=== PATIENT | female | born 1945 | race Caucasian/White ===

== ENCOUNTER → 2024-02-01 | Outpatient (CLI) | payer MEDICARE, SELFPAY ==
--- NOTE | 2024-02-01 09:39 | CDU_ITS ---
Reason For Study: Carotid bruit Rt. Velocities/BP Lt. Velocities/BP Prox CCA 64.5/6 cm/sec. Prox CCA 87.6/9 cm/sec. Mid CCA 62.6/8.8 cm/sec. Mid CCA 82.6/4.1 cm/sec. Dist CCA 62.6/8.8 cm/sec. Dist CCA 57.8/10.2 cm/sec. Prox ICA 135.7/7.9 cm/sec. Prox ICA 56.9/7.7 cm/sec. Mid ICA 69.1/11.4 cm/sec. Mid ICA 63/15.1 cm/sec. Dist ICA 80.2/10.2 cm/sec. Dist ICA 77.7/20 cm/sec. Rt. ICA/CCA = 2.17. Lt. ICA/CCA = 0.94. Prox ECA 152.1/6 cm/sec. Prox ECA 113.3/1.6 cm/sec. Rt. Vert. 40.9/7.7 cm/sec. Lt. Vert. 52/9.1 cm/sec. Right Extracranial There is intimal thickening but no significant atherosclerotic plaque noted in the right common carotid artery. There is heterogeneous, irregular atherosclerotic plaque noted in the right internal carotid artery. There is heterogeneous, irregular atherosclerotic plaque noted in the right external carotid artery. Antegrade flow is noted in the right vertebral artery. Left Extracranial There is homogeneous, smooth atherosclerotic plaque noted in the left common carotid artery. There is heterogeneous, irregular atherosclerotic plaque noted in the left internal carotid artery. There is heterogeneous, irregular atherosclerotic plaque noted in the left external carotid artery. Antegrade flow is noted in the left vertebral artery. Procedure Carotid Duplex [id number]. This is a Carotid Duplex examination using B-mode, color flow and specral Doppler. Exam performed in department. VL/Carotid Duplex Ultrasound Interpretation Summary Irregular calcific plaque with shadowing at the proximal right internal carotid artery with 50 to 69% stenosis Less than 50% stenosis right external carotid artery Irregular plaque at the proximal left internal carotid artery with less than 50 % stenosis Less than 50% stenosis left external carotid artery Patent antegrade vertebral arteries bilaterally Ordering Physician: Danny Hardin Referring Physician: Jc Ahuja M.D. Performed By: Tg Sylvester RVT
== END | disposition home or self-care (01) ==
PROVIDERS: PCP Internal Medicine; Referring Provider Internal Medicine Cardiovascular Disease; Visit Provider Internal Medicine Cardiovascular Disease
DX: I65.23 Occlusion and stenosis of bilateral carotid arteries (principal); R09.89 Other specified symptoms and signs involving the circulatory and respiratory systems
CPT/HCPCS: 93880

== ENCOUNTER → 2024-02-17 | Outpatient (CLI) | payer MEDICARE, SELFPAY ==
--- NOTE | 2024-02-17 07:05 | ECHOD_ITS ---
Reason For Study: ASHD Procedure This was a 2D Doppler, Color Flow transthoracic echocardiogram. The study was technically difficult. Due to arrhythmia. Exam performed in department. Left Ventricle Normal left ventricle. Mild concentric left ventricular hypertrophy. Left ventricular systolic function is normal. The estimated ejection fraction is 65 %. No regional wall motion abnormalities noted. Right Ventricle Normal RV size. Normal systolic function. Atria Normal left atrium. Normal right atrium. Mitral Valve Normal mitral valve. Tricuspid Valve Normal tricuspid valve. Mild to moderate (1-2+) tricuspid valve insufficiency. Pulmonary artery systolic pressure is 50 mmHg. Moderate pulmonary hypertension. Aortic Valve The aortic valve is not well visualized. Peak aortic valve gradient 90 mmHg. Mean aortic valve gradient 55 mmHg. Severe aortic stenosis. Mild (1+) aortic valve insufficiency. Pulmonic Valve Normal pulmonic valve. Great Vessels Normal aortic root. The pulmonary artery is normal size. Inferior vena cava collapse with respiration. Pericardium/Pleural No pericardial effusion. MMode/2D Measurements & Calculations LVIDd: 4.2 cm IVSd: 1.4 cm LVOT diam: 1.8 cm LVIDs: 2.8 cm LVPWd: 1.2 cm LVOT area: 2.5 cm2 RVDd: 2.5 cm FS: 32.7 % Ao root diam: 2.6 cm LAV(MOD-bp): 47.7 ml LA A4 area: 17.9 cm2 LAV(MOD-bp) Indexed: 27.1 ml/m2 LAV(MOD-sp2): 41.8 ml LAV(MOD-sp4): 52.0 ml LA dimension(2D): 3.8 cm TAPSE: 2.2 cm RA A4 area: 11.9 cm2 Doppler Measurements & Calculations Lat Peak E' Karsten: 5.9 cm/sec Med Peak E' Karsten: 7.0 cm/sec MV V2 max: 156.1 cm/sec MV max P.7 mmHg MV V2 mean: 93.5 cm/sec MV mean P.9 mmHg MV V2 VTI: 45.5 cm MVA(VTI): 2.1 cm2 MV P1/2t max karsten: 122.4 cm/sec Ao V2 max: 473.0 cm/sec AI max karsten: 378.3 cm/sec MV P1/2t: 101.7 msec Ao max P.5 mmHg AI max P.6 mmHg MV dec slope: 352.6 cm/sec2 Ao V2 mean: 357.0 cm/sec AI dec slope: 296.6 cm/sec2 Ao mean P.8 mmHg AI P1/2t: 373.5 msec MVA(P1/2t): 2.2 cm2 Ao V2 VTI: 121.2 cm AV (velocity ratio): 0.31 KARL(I,D): 0.78 cm2 KARL(V,D): 0.72 cm2 LV V1 max: 137.2 cm/sec SV(LVOT): 94.4 ml PA V2 max: 126.3 cm/sec LV V1 max P.6 mmHg PA V2 mean: 81.6 cm/sec LV V1 mean P.0 mmHg PA V2 VTI: 25.7 cm LV V1 mean: 108.2 cm/sec LV V1 VTI: 38.1 cm TR max karsten: 336.0 cm/sec TR max P.2 mmHg ECHO/Echo Complete Interpretation Summary Normal left ventricle. Left ventricular systolic function is normal. The estimated ejection fraction is 65 %. Mild concentric left ventricular hypertrophy. Pulmonary artery systolic pressure is 50 mmHg. Moderate pulmonary hypertension. Mean aortic valve gradient 55 mmHg. Severe aortic stenosis. Ordering Physician: Danny Hardin Referring Physician: Jc Ahuja Performed By: Donita Ferris, [place], RVT
--- NOTE | 2024-02-17 11:33 | STRESSREP_ITS ---
Stress Test Report Pharmacologic myocardial perfusion stress test. 78-year-old lady with a history of coronary artery disease and dyspnea Resting EKG demonstrates sinus rhythm with a rate of 83 bpm. Right bundle branch block is noted. Resting blood pressure is 168/84 mmHg. 0.4 mg of regadenoson was infused per usual protocol followed by rapid intravenous saline flush injection. Continuous EKG monitoring was performed. The maximum heart rate was 104 bpm which was 72% of max impacted heart rate the maximum workload was 1 metabolic equivalent. At rest there were no ST or T wave changes noted to suggest ischemia and at peak infusion nonspecific ST changes were noted which did not meet the criteria for ischemia. No clinical angina is noted. The f inal blood pressure was 138/74 mmHg. Myocardial perfusion protocol. 11.6 mCi of technetium 99m sestamibi was injected at rest. 0.4 mg of regadenoson was infused per usual protocol. At peak infusion 34.1 mCi of technetium 99m sestamibi was injected stress images were obtained stress and rest images were reconstructed and compared in the short axis vertical long and horizontal long axis. Gated images were also obtained. Perfusion SPECT analysis: Review of the stress images demonstrate normal uptake of tracer noted in all areas of the myocardium. The resting images similar demonstrated normal uptake of tracer noted in all areas of the myocardium. No areas of reversibility are noted to suggest ischemia and no previous infarct is noted. Gated SPECT analysis: The gated ejection fraction is 67%. Conclusion: Normal pharmacologic myocardial perfusion stress test. Preserved ejection fraction.
== END | disposition home or self-care (01) ==
PROVIDERS: PCP Internal Medicine; Referring Provider Internal Medicine Cardiovascular Disease; Visit Provider Internal Medicine Cardiovascular Disease
DX: I25.10 Atherosclerotic heart disease of native coronary artery without angina pectoris (principal); I25.84 Coronary atherosclerosis due to calcified coronary lesion
CPT/HCPCS: 78452; 93017; 93306; A9500; A4216; J2785

== ENCOUNTER 2024-03-03 06:57 | Day surgery (SDC) | payer MEDICARE, SELFPAY ==
--- NOTE | 2024-02-19 10:50 | RAD_ITS ---
EXAM: XR CHEST, 2 VIEWS CLINICAL INDICATION: nonrheumatic aortic artery stenosis TECHNIQUE: Frontal and lateral views of the chest. COMPARISON: June 19, 2011. FINDINGS: LUNGS AND PLEURAL SPACES: Mild chronic-appearing lung changes including mild increased apparent lucency in the left upper lung field and mild chronic interstitial markings in the lung bases. No pneumothorax. No effusion. HEART: Unremarkable. Cardiac silhouette not enlarged. MEDIASTINUM: Central airways and mediastinal contour are unremarkable. BONES/JOINTS: Unremarkable. No acute fracture. SOFT TISSUES: Unremarkable. VASCULATURE: Mild peripheral calcification of the aortic arch is stable. RAD/Chest PA and Lateral IMPRESSION: Stable chest. Mild chronic changes. Electronically Signed: Ledy Ornelas MD at 2:45 EDT ,
[2024-02-19 11:47] LABS: Absolute Neutrophil Count 4.5 X10^3/uL (2.0-7.7); Basophil# 0.08 X10^3/uL; Eosinophil# 0.22 X10^3/uL; Eosinophils% 2.7 % (0-5); Hematocrit 45.4 % (37-47); Hemoglobin 15.3 g/dL (12.0-15.0); Lymphocyte % 28.6 % (19-41); Mean Corp Hgb Conc 33.7 g/dL (32-36); Mean Corpuscular Hgb 29.4 pg (27.0-32.0); Mean Corpuscular Volume 87.1 fL (81-99); Mean Platelet Vol. 9.2 fl (6.2-12.0); Monocyte# 0.89 X10^3/uL; Monocyte% 11.1 % (0-10); NRBC Flagged by Analyzer 0 % (0-5); Neutrophil # 4.53 X10^3/uL (2.7-7.7); Neutrophil % 56.5 % (47-70); Platelet Count 329 K/mm3 (150-450); RBC Distribution Width CV 13.6 % (11.6-14.6); RBC Distribution Width SD 43.4 fl (35.1-43.9); Red Blood Count 5.21 M/mm3 (4.2-5.4)
[2024-02-19 11:56] LABS: International Normalized Ratio 0.9; Prothrombin Time (Protime)PT. 12.2 SECONDS (11.7-14.9)
[2024-02-19 11:57] LABS: Partial Thromboplast Time 26.7 Seconds (24.1-36.2)
[2024-02-19 12:10] LABS: Anion Gap 3 (5-15); BUN 32 mg/dL (7-18); BUN/Creat Ratio 18.1 RATIO (10-20); Calcium,Total 9.3 mg/dL (8.5-10.1); Chloride 110 mmol/L (98-107); Creatinine, Serum 1.77 mg/dL (0.55-1.02); EST Glomerular Filtration Rate 30 mL/min (>60); Est Glom Filt Rate - Afr Amer 36 mL/min (>60); Glucose 71 mg/dL (74-106); Potassium 4.2 mmol/L (3.5-5.1); Sodium Level 140 mmol/L (136-145)
--- NOTE | 2024-02-22 12:52 | PCM.HP.BLA ---
History and Physical Date of Admission: 03/03/24 This is a 78-year-old lady who presents to for a cardiac catheterization for severe aortic valve stenosis. She has a history of hypertension aortic valvular disease who presents for evaluation of her cardiac status. She has been short of breath with exertion as well as has had some upper back pain. She denies any dizziness or diaphoresis near syncope or syncope she has been compliant with her medications. Do remember that she is a smoker in the past and as part of her workup she underwent a low-dose CT scan which demonstrated evidence of coronary artery calcification. She denies any chest pain or diaphoresis. She has not had any pedal edema. Her physical exam is significant for clear lung rosenbaum bilateral carotid bruit soft 2/6 systolic murmur noted left sternal border. Intake Vital Signs See EMR Allergies See EMR Medications See EMR Ejection fraction %: 65 to 70 PFSH Medical History Asthma Benign hypertension Bilateral carotid artery stenosis Cervicalgia CKD (chronic kidney disease) stage 3, GFR 30-59 ml/min COPD (chronic obstructive pulmonary disease) Coronary artery calcification H/O cardiovascular stress test HLD (hyperlipidemia) Nonrheumatic aortic (valve) stenosis Osteoporosis Polycythemia secondary to smoking PVD (peripheral vascular disease) RBBB Social History Smoking Status: Former smoker ROS Const Const: Positive for fatigue and weakness; Negative for headache(s), daytime sleepiness or difficulty sleeping Eyes Eyes: Negative for change in vision ENT ENT: Negative for headache(s), dizziness or Nosebleed/epistaxis Cardio Chest Pain: No Palpitations: No Edema: None Resp Respiratory: Positive for SOB with activity and SOB at rest; Negative for SOB orthopnea\SOB lying down or Cough GI GI: Negative nausea, vomiting or heartburn Neuro Neuro: Positive for weakness; Negative for dizziness, lightheadedness, near syncope or headache(s) Endo Endo: Positive for fatigue Cardiology Exam Const Appearance: cooperative, healthy appearing, no acute distress, well developed and well groomed Nutritional Appearance: average body habitus and well nourished Orientation: alert, awake and oriented x3 Head Head: normal to inspection, normocephalic and atraumatic Ears: hearing grossly normal bilaterally and external ears normal Nose: external nose normal, nares normal, nasal mucous membranes and turbinates normal, septum normal and no nasal discharge Face and Sinus: face symmetric Mouth: oral mucosae normal, tongue normal, oropharynx normal and moist mucous membranes Teeth and gingiva: dentition normal Throat: posterior oropharynx normal, tonsils normal and uvula midline Eyes General: appearance normal, both eyes and all related structures Eyelids: eyelids normal Conjunctivae: conjunctivae normal Pupils: PERRL, normal by confrontation and accommodation normal EOM: EOM intact bilaterally Neck Neck: normal visual inspection, trachea midline and no JVD JVD: +5 Carotids: normal carotid upstroke and bounding pulses Chest Chest inspection: normal inspection of the chest, symmetric chest movement and normal respiratory effort Auscultation: Bilateral: Clear to Auscultation Cardio Palpation: normal PMI Rate: regular rate Rhythm: regular rhythm Heart sounds: S1 normal, S2 normal and normal, physiologic split S2; Negative rub, gallop or murmur Murmur: Grade 2/6 GI GI: normal to inspection, soft, no hepatosplenomegaly and bowel sounds present Neuro General: patient alert, patient awake, patient oriented x3, gait normal, moves all extremities and no focal sensory deficit Skin Skin: no rashes or lesions noted Extremities Pulses: Normal: Right Femoral Pulse, Left Femoral Pulse, Right Dorsalis Pedis Pulse, Left Dorsalis Pedis Pulse, Right Posterior Tibial Pulse, Left Posterior Tibial Pulse, Right Radial Pulse and Left Radial Pulse Lower Extremity Edema: None: Bilateral Musculoskel Musculoskeletal: No joint tenderness Psych Psychological: normal affect Supplemental Info Supplemental Information Echocardiogram 02/17/2024: Interpretation Summary Normal left ventricle. Left ventricular systolic function is normal. The estimated ejection fraction is 65 %. Mild concentric left ventricular hypertrophy. Pulmonary artery systolic pressure is 50 mmHg. Moderate pulmonary hypertension. Mean aortic valve gradient 55 mmHg. Severe aortic stenosis. Stress test 02/17/2024: Conclusion: Normal pharmacologic myocardial perfusion stress test. Preserved ejection fraction. Echocardiogram 03/26/16 ([facility]) Conclusion The left ventricle is normal in size. There is mild upper septal left ventricular hypertrophy. Left ventricular systolic function is normal. EF=65+ 5 %. Baseline left ventricular diastolic function is consistent with abnormal relaxation (Stage I). The right ventricle is normal in size. Right ventricular systolic function is normal. Mild aortic stenosis, with no AI, Peak/mean gradient 33/20mmHg KARL 1.4cm2 DI.45 Stress Test 10/09/09 ([facility]) Impression No evidence if ischemia or infarction. Normal global and regional left ventricular function. Carotid US 05/09/19 ([facility]) Impression Right Side: Internal carotid artery: 40-59%. Vertebral artery: Patent and antegrade flow noted. Subclavian artery: 50-99% stenosis. Left Side: Internal carotid artery: 20-39%. Vertebral artery: Patent and antegrade flow noted. Subclavian artery: 50-99% stenosis. Assessment and Plan Assessment and Plan (1) Nonrheumatic aortic (valve) stenosis: Status: Acute Plan: Patient has a history of aortic valve stenosis. Her echocardiogram from January of this year, demonstrated an ejection fraction of 65% , and severe aortic stenosis. Would like to proceed with a cardiac catheterization to further assess this. Depending on results, further recommendations will be made.
[2024-03-02 10:51] VITALS: BMI 22.8
--- NOTE | 2024-03-03 08:56 | CL.D_ITS ---
Patient Name: LEANNA HUBBARD Study Date: 03/03/2024 Performing: Danny Hardin MD Ht: 62 inches 157.48 cm : 1945 Wt: 189.6 lbs 86 kg Age: 78 Gender: female BSA: 1.87 PROCEDURE(S) PERFORMED DC01-(71175)LHC/COR/LV CLINICAL PROFILE AND INDICATIONS Indications: Valvular Disease Heart Failure: None Stress/Imaging Stress/Image Study Performed: No CAD Presentations: Symptom unlikely to be ischemic. CONCLUSIONS Non obstructive coronary arteries Aortic Valve Stenosis- Severe RECOMMENDATIONS Referred for TAVR. DESCRIPTION OF PROCEDURE The patient arrived to the procedure lab. The risks and benefits of the procedure as well as a full description of our services here and current unavailability of surgical backup were fully explained to the patient and/or their significant other prior to the catheterization. The Timeout was completed, verifying the correct patient and procedure. The patient's procedural site was prepped and draped in the usual fashion. Local anesthetic was given subcutaneously to right radial region with Lidocaine 2%. Using a modified Seldinger technique, arterial access was obtained via the right radial artery, a 6Fr sheath was inserted. Left Coronary Artery selective angiography was performed in multiple views using a 5 Fr. 4.0 Wardell catheter. Right Coronary Artery selective angiography was then performed in multiple views using a 5 Fr. JR 5 catheter.The arterial sheath was pulled and a TR Band was applied for hemostasis 9 ml of air CORONARY ANGIOGRAPHY DOMINANCE: Right Dominant LEFT HEART ASSESSMENT Left Ventricular Ejection Fraction: by Echo 60 % Normal LV wall motion Normal Left Ventricular systolic function LEFT MAIN: Mild calcification, No significant disease noted LEFT ANTERIOR DESCENDING ARTERY: Mild luminal irregularities less than 30% CIRCUMFLEX ARTERY: Mild luminal irregularities less than 30% RIGHT CORONARY ARTERY: Mild luminal irregularities VALVE FINDINGS: Aortic Valve Calcification - severe Aortic Valve Stenosis - severe COMPLICATIONS No Complications PROCEDURE MEDICATIONS Fentanyl 50 mcg IV Versed 1 mg IV Baby Aspirin (81mg) 1 Tabs PO @ 03/03/2024 07:41:29 Heparin given IA 03/03/2024 08:25:59 IV Fluids: .9 NaCl IV started @ 50 ml/hr 03/03/2024 08:32:07 SUMMARY OF HEMODYNAMIC DATA Time AIR REST ECG 07:34:12 ECG 08:15:57 AO 139/53 (87) SA 08:32:39 Signed By Danny Hardin MD On 03/03/2024 08:55:41 Danny Hardin MD
== END 2024-03-03 10:20 | disposition home or self-care (01) ==
PROVIDERS: PCP Internal Medicine; Referring Provider Internal Medicine Cardiovascular Disease; Visit Provider Internal Medicine Cardiovascular Disease
DX: I35.0 Nonrheumatic aortic (valve) stenosis (principal); J44.9 Chronic obstructive pulmonary disease, unspecified; N18.30 Chronic kidney disease, stage 3 unspecified; I12.9 Hypertensive chronic kidney disease with stage 1 through stage 4 chronic kidney disease, or unspecified chronic kidney disease; E78.5 Hyperlipidemia, unspecified; I25.10 Atherosclerotic heart disease of native coronary artery without angina pectoris; I70.8 Atherosclerosis of other arteries; Z87.891 Personal history of nicotine dependence; I25.84 Coronary atherosclerosis due to calcified coronary lesion; Z79.82 Long term (current) use of aspirin; I65.23 Occlusion and stenosis of bilateral carotid arteries; I45.10 Unspecified right bundle-branch block; I73.9 Peripheral vascular disease, unspecified
CPT/HCPCS: 36415; 71046; 80048; 85025; 85610; 85730; 93454; 99152; 99153; J7040; Q9967; C1769; C1894

== ENCOUNTER → 2024-08-18 | Outpatient (CLI) | payer MEDICARE, SELFPAY ==
[2024-08-18 12:32] LABS: Absolute Lymphocyte Count 2.81 X10^3/uL (0.83-4.51); Absolute Neutrophil Count 4.8 X10^3/uL (2.0-7.7); Basophil# 0.09 X10^3/uL; Eosinophil# 0.25 X10^3/uL; Eosinophils% 2.9 % (0-5); Hematocrit 44.5 % (37-47); Hemoglobin 14.9 g/dL (12.0-15.0); Lymphocyte # 2.81 X10^3/ul (0.83-4.51); Lymphocyte % 32.2 % (19-41); Mean Corp Hgb Conc 33.5 g/dL (32-36); Mean Corpuscular Hgb 28.8 pg (27.0-32.0); Mean Corpuscular Volume 85.9 fL (81-99); Monocyte# 0.81 X10^3/uL; Monocyte% 9.3 % (0-10); NRBC Flagged by Analyzer 0 % (0-5); Neutrophil # 4.76 X10^3/uL (2.7-7.7); Neutrophil % 54.4 % (47-70); Platelet Count 233 K/mm3 (150-450); RBC Distribution Width CV 13.6 % (11.6-14.6); RBC Distribution Width SD 42.3 fl (35.1-43.9); Red Blood Count 5.18 M/mm3 (4.2-5.4); White Blood Count 8.7 K/mm3 (4.4-11.0)
[2024-08-18 12:51] LABS: Anion Gap 5 (5-15); BUN 48 mg/dL (7-18); BUN/Creat Ratio 25.8 RATIO (10-20); Calcium,Total 9.6 mg/dL (8.5-10.1); Chloride 111 mmol/L (98-107); Creatinine, Serum 1.86 mg/dL (0.55-1.02); EST Glomerular Filtration Rate 28 mL/min (>60); Est Glom Filt Rate - Afr Amer 34 mL/min (>60); Glucose 100 mg/dL (74-106); Potassium 4.2 mmol/L (3.5-5.1); Sodium Level 141 mmol/L (136-145)
[2024-08-18 13:02] LABS: BNP,B-Type NATRIURETIC PEPTIDE 60.2 pg/mL (0-100)
== END | disposition home or self-care (01) ==
LOC: LAB 10:45
PROVIDERS: PCP Internal Medicine; Referring Provider Nurse Practitioner Family; Visit Provider Nurse Practitioner Family
DX: R06.09 Other forms of dyspnea (principal)
CPT/HCPCS: 36415; 80048; 83880; 85025

== ENCOUNTER → 2024-08-23 | Outpatient (CLI) | payer MEDICARE, SELFPAY ==
--- NOTE | 2024-08-23 09:58 | PCM.CR.HP2 ---
CR - History & Physical General Arrival date:: 08/23/24 Arrival time:: 09:58 Date of Referral:: 08/10/24 Date of CR Evaluation:: 08/23/24 Referring Physician: Dr. Hardin Primary Diagnosis: heart valve replacement History of Present Cardiac Event Onset Date Heart valve replacement or repair:: Yes (onset 05/02/24) Medications Ambulatory Orders ?Medication ?Instructions ?Recorded cilostazol 50 mg tablet 50 mg PO DAILY 12/03/23 fluticasone 100 mcg-salmeterol 50 1 inh inhalation BID 12/03/23 mcg/dose blistr powdr for inhalation (Advair Diskus) hydrochlorothiazide 25 mg tablet 25 mg PO DAILY 12/03/23 melatonin 3 mg capsule 3 mg PO HS sleep 12/03/23 pravastatin 20 mg tablet 20 mg PO DAILY 12/03/23 losartan 50 mg tablet 50 mg PO DAILY dose increased by 07/06/24 Lu Hameed [employer] at [facility] #90 tabs metoprolol tartrate 50 mg tablet 50 mg PO BID #180 tabs 07/06/24 meloxicam 7.5 mg tablet 7.5 mg PO QDAY PRN 08/10/24 amlodipine 5 mg tablet 5 mg PO DAILY #90 tabs 08/11/24 warfarin 2 mg tablet 2 mg PO QDAY #30 tabs 08/15/24 Allergies Allergies codeine Adverse Reaction (Intermediate, Verified 08/10/24 11:21) PT UNSURE OF REACTION meperidine (From Demerol) Adverse Reaction (Intermediate, Verified 08/10/24 11:21) Abd cramps/diarrhea Penicillins Adverse Reaction (Intermediate, Verified 08/10/24 11:21) Rash Sulfa (Sulfonamide Antibiotics) Adverse Reaction (Intermediate, Verified 08/10/24 11:21) PT UNSURE OF REACTION Sleep Disorder Evaluation Hx of Sleep Apnea: No Do you snore loudly (louder than talking or can be heard through closed doors)?: No Do you often feel tired/ fatigued/ sleepy during daytime?: No Has anyone observed you stop breathing during sleep?: No History of Hypertension (for STOP score): Yes STOP Results: Negative Advanced Directives Advanced Directives Power of Cotton Classer Aide: Yes Living Will: Yes Advance Directives Information Provided: Yes Advance Directives on File: Yes DNR Order?:: No Past Medical History Covid-19 Screening Physicial Symptoms Other Clinical Concerns Exposure Risk Pertinent Comorbidities 65 years or older:: Yes Has a chronic lung disease or moderate to severe asthma:: Yes Has a serious heart condition:: Yes Past Medical Illness Medical History Complete heart block, 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 Cervicalgia Polycythemia secondary to smoking Bilateral carotid artery stenosis CKD (chronic kidney disease) stage 3, GFR 30-59 ml/min Osteoporosis RBBB PVD (peripheral vascular disease) Nonrheumatic aortic (valve) stenosis Coronary artery calcification H/O cardiovascular stress test HLD (hyperlipidemia) COPD (chronic obstructive pulmonary disease) Benign hypertension Asthma Past Surgical History Surgical History S/P TAVR (transcatheter aortic valve replacement) (05/02/24) Surgical History: appendectomy and hysterectomy Social History Smoking History Smoking Status: Current every day smoker Years Smokin Packs Smoked per Day: 0.5 Alcohol Use Alcohol Usage: No Substance Abuse Hx Substance Use: No Occupation Occupation (List type of work in comments):: Retired Hobbies, Recreation, Social Activities Hobbies: Farm Recreational Activities: I am able to engage in most, but not all activities Social Environment Status Marital Status: Current Living Arrangements Living Environment:: Spouse Safety Do you feel safe in your surroundings?: Yes Assistance Do you need any assistance at home?: no Review of Systems Review of Systems Hints Review of Present Symptoms: Reports Shortness of Breath at Rest, Shortness of Breath with Exertion, Fatigue, Heart Arrhythmia/Irregularities, Appetite - Normal, Appetite - Special Diet and Sleep - Normal; Denies PVD, Operative Discomfort, Angina, Wound Healing, Dizziness/Lightheadedness or Sexual Changes Pain Is Patient Pain Free?: Yes Risk Factor Assessment Chief Complaint Chief Complaint: heart valve replacement Vital Signs Blood Pressure: 151/80 Pulse Pulse Rate: 82 Hypertension Blood Pressure Sitting - Right Arm: 151/80 Obesity Height: 5 ft 2 in Weight:: 162 lb Weight in Pounds: 162.0 lbs Body Mass Index (BMI): 29.6 Nutritional Referral for Obesity: No (declines) Physical Inactivity Physical Inactivity: None Risk Stratification Risk Guidelines: Moderate Risk: Risk Factor for Diabetes, Risk Factor for Obesity, Risk Factor for Sedentary Lifestyle and Risk Factor for Depression and Highest Risk: Risk Factor for Smoking, Risk Factor for Dyslipidemia and Risk Factor for Hypertension For Smoking Smoking Risk Guidelines For Dyslipidemia Dyslipidemia Risk Guidelines For Diabetes Mellitus Diabetes Risk Guidelines For Obesity/Overweight Obesity/Overweight Risk Guidelines For Hypertension Hypertension Risk Guidelines For Sedentary Lifestyle Sedentary Lifestyle Risk Guidelines For Depression Depression Risk Guidelines Motivation Motivation to Participate On a scale of 1 to 10, how prepared are you to commit to attending program?: 5 What do you see as barriers to successfully being able to complete the program?: nothing What do you see as the benefits of succesfully completing the program? In other words, what do you hope to get out of participating in the program?: energy Are there issues you are dealing with that will interfere with completing the program?: no Do you have a spouse or signficant other, family or friends who will help support you to complete the program?: yes
--- NOTE | 2024-08-23 10:03 | PCM.CR.ITP ---
Diagnosis General Information Admitting Diagnosis: heart valve replacement Personal Learning Style:: Audio/Visual Barriers to Learning: No Barriers Stage of change r/t lifestyle modifications:: Contemplation Gave educational material for:: Treating Heart Disease, How The Heart Works, What it means to have Heart Disease, How Coronary Artery Disease is Diagnosed, Heart Procedures, What Heart Medications Do, Risk Factors & Modifications, Living an Active Life, Nutrition, Emotions & Heart Disease, Stress Management & Relaxation and Sleep Disorders & Heart Disease Education/Goals Cardiac Rehabilitation Goals Personal Goals: Initial Assessment: Quit smoking (participate in smoking cessation, Improve energy level and Improve muscle strength and endurance Scale for measuring improvement of personal goals Diagnosis & Disease Process Outcomes/Goals: Pt IDs own risk factors & lifestyle modifications by Session 10, Verbalizes symptoms of angina & response by session 3., Pt independently manages and Other Additional Outcomes/Goals: Plan/Interventions: Assist Pt to ID & engage in lifestyle modification to reduce CVD risk, Instruct on individual risk factors, Review symptoms of angina & emergency actions, Review secondary diagnosis & identify educational needs. and Other see comment 30 day Reassessments:: Not Met 30 day Reassessments:: Not Met 30 day Reassessments:: Not Met 30 day Reassessments:: Not Met Final Reassessments:: Not Met Safety Referral to Physical Therapy: No Referral to [facility] Case Management: No Fall Risk Assessed:: Yes Assistive Devices:: None Exercise - Initial Assessment Visit Date of Eval: 08/23/24 (initial eval ) Mets: Pre-: >3 METS for 30 minutes by discharge, >5 METS for 30 minutes by discharge, >7 METS for 30 minutes by discharge and Unable to meet goal due to: (see comment below) Physician Prescribed Exercise Modalities: Treadmill, Schwinn Airdyne AD-7, SciFit Stepper, [email or web address] Pro-II Ergometer and G4S Lateral Manager [employer] Frequency: 3x/week for 12 weeks [36 sessions] Intensity: 60-80% of age predicted maximum heart rate reserve Duration: 30 - 45 minutes Current METSs:: 3 Target Heart Rate:: 85-107 Resting Blood Pressure: 151/80 EKG Type: SR 1st degree A-V block occas ectopic vent beats Outcomes & Goals Goals:: Verbalizes understanding of THR, RPE & goal METS by session 6, Documents in home exercise log/reports 30 min aerobic 5 day/wk by DC, Demonstrates accurate pulse taking by DC and Other additional outcome/goals: see below Intervention & Plan Exercise Program Goals: Instruct on personal THR & RPE, Instruct on MET level & personal MET goal, Show patient to take own pulse /validate performance until accurate, Instruct on home exercise and Other additional plan/int Physical Activity Home Exercise Physical Activity - Home Exercise: Safe Exercise, Warm-up, Self-monitoring, Cool-Down, Home Exercise > 30 min Daily and Sitting Time <3 hours/daily Outcomes & Goals Outcomes/Goals: Demonstrates correct Warm-up/exercise Cool-Down (S3) if = 2.5 METs, Verbalizes symptoms of exercise intolerance by Session 3 (S3), Demonstrate safe equipment use (S3) & follows exercise prescrition (6) and Other: See below Intervention & Plan Plan/Intervention: Instruct warm-up & cool-down if exercising at > 2 METs, Instruct on symptoms of exercise intolerance & actions to take, Instruct & monitor on saf, Assess intial functional capacity & safety risk and Other See below Nutrition - Initial Assessment Program Goals Nutrition Program Goals Patient has diagnosis of Hyperlipidemia (ICD E78)?: Yes Visit Date of Eval: 08/23/24 (initial eval ) Cholesterol/Lipids (Other Core Measures) Determine presence & major risk factors that modify LDL goal: Cigarette smoking, Hypertension or hypertensive medication, Low HDL cholesterol <40 mg/dL*, Family history of premature CHD in Male < 55 years: female <65 yearsFa and Age men > 45 years; women >/= 55 years Outcomes/Goals: Pt IDs own risk factors & lifestyle modifications by Session 10, Verbalizes symptoms of angina & response by session 3., Pt independently manages and Other Additional Outcomes/Goals: Intervention/Plan: Advocate for lipid panel cholesterol medication if applicable, Instruct on personal lipid levels & lipid goals/NCEP guidelines, Instruct on cholesterol and Other additional plan/int Diabetes (Other Core Measures) Diabetes Type: Not Applicable Weight Mgt (Other Care) Height: 5 ft 2 in Weight:: 162 lb BMI: 29.6 Diagnosis Overweight/Obesity BMI> 30% ICD-10 E66: No Diagnosis High BMI/Morbid Obesity BMI> 35% ICD-10 Z68: No Outcomes/Goals: Pt sets, maintains & shows weight loss goal & trend during rehab and Other additional outcomes/goals Intervention/Plan: Instruct on ideal BMI & set weight loss goal w/patient, Assist pt to ID & incorporate diet changes for weight loss by S9, Refer to Structured Weight Loss program as appropriate, Encourage goal of using 250-300dcal per session for weight loss and Other additional plan/interventions Healthy Eating Habits Will attend diet classes:: Yes Outcomes/Goals:: Consume diet rich in vegs,fruits,whole grain/high fiber,fish,lean meat, Limit sat/trans fats,cholesterol & added salts & sugars and Other additional outcome/goals: Intervention/Plan:: Assess current eating habits and Other Additional plan/interventions Education Gave educational materials for:: Signs & symptoms of hypoglycemia, Signs & symptoms of hyperglycemia, Relate diabetes to coronary artery disease and Healthy eating Core - Initial Assessment Visit Date of Eval: 08/23/24 (initial eval ) Medication Compliance Preventative Medication(s):: Statin/lipid, Beta scott, Eliquis and ARB (Angiotensi Rcap) H/O mental health issues: depression, anxiety, or addiction?: No Doesn?t believe in the benefits of treatment?: No Believes medications are unnecessary or harmful?: No Has a concern about medication side effects?: No Expresses concern over the cost of medications?: No Outcomes/Goals: Verbalizes medications,desired effect & common side effects @ DC, Pt self-reports following medication regimen, Keeps card in wallet w/medications listed by DC and Other additional outcome/goals: Interventions/plans: Instruct on medication effects & side effects, Review medication list w/patient every two weeks, Instruct importance of taking meds as ordered & assist problem solving and Other additional Tobacco Use Tobacco Use: Cigarettes How many cigarettes do you smoke per day?: 10 Years Smokin Outcomes/Goals: Smoking cessation achieved or maintained by discharge, Identify aids/strategies for achieving smoking cessation by session 6 and Other additional outcome/goals Interventions/plan: Instruct on effects of smoking & provide smoking cessation resource, Assist pt to set quit date & provide encouragement, Assist pt to develop strategies to achieve/maintain quit date, Assist pt w/nicotine replacement & medication for cessation success and Other additional plan/interventions Hypertension Hypertension Diagnosis:: Hypertension ICD-10 I10 Resting Blood Pressure:: 151/80 [place] [employer] Hypertension Guidelines Outcomes/Goals: Able to verbalize/achieve optimal blood pressure <130/80, Incorporates diet changes & exercise for blood pressure control by DC and Other additional outcomes/goals Interventions/plan: Instruct on optimal blood pressure, hypertension & medications, Instruct on effects of sodium, alcohol, stress, exercise &hypertension and Other additional plan/interventions Tobacco Cessation Referral Smoking Cessation Referral:: Yes Individual Education/Counseling:: No Education Schedule Given:: Yes Psychosocial - Initial Assess VIsit Date of Eval: 08/23/24 (initial eval ) History of previous Mental disease:: No Target Goals Target Goals Psychosocial Test Tool Used:: [employer] QOL Cardiac and PHQ-9 Questionnaire phq-9 Severity Referral to Behavioral Health PS - Interventions: Yes: Attend Stress Management Classes Outcomes/Goals: See list Psychosocial Outcomes/Goals:: ID's personal stressors & 2 strategies to manage stress by discharge and Other Additional outcome/goals: Intervention/Plan: See List Interventions/Plan:: Assess stressors,coping strategies & signs of derpression on admission, Instruct/assist pt to develop coping & personal stress Mgt strategies, Refer to Behavioral Health if appropriate, Refer to Physician if appropriate, Instruct patient to recognize signs & symptoms of depression, Instruct patient to recog and Other additional plan/intervention Patient Health Questionnaire PHQ-9 Screening Initial Assessment: 1. Little interest or pleasure in doing things: Several days 2. Feeling down, depressed, or hopeless: Not at all 3. Trouble falling or staying asleep, or sleeping too much: Several days 4. Feeling tired or having little energy: Nearly every day 5. Poor appetite or overeating: Not at all 6. Feeling bad about yourself -- or that you are a failure or have let yourself or your family down: More than half the days 7. Trouble concentrating on things, such as reading the newspaper or watching television: Not at all 8. Moving or speaking so slowly that other people could have noticed. Or the opposite - being so fidgety or restless that you have been moving around a lot more than usual: Not at all 9. Thoughts that you would be better off , or of hurting yourself in some way: Not at all How difficult have these problems made it for you to do your work, take care of things at home, or get along with other people?: Very difficult Total Score: 7 TAMMI-Q SV Test Statements CAD is a disease of the arteries in the heart: False Examples of risk factors for heart disease: True Angina is chest pain or discomfort: True The benefits of resistance training include: True Eating more meat and dairy products: True Anti-platelet medications such as aspirin are important: True The only effective way to manage stress: False An exercise warm-up slowly increases heart rate: False Prepared, processed foods usually have high sodium: True Depression is common after a heart attack: I Don't Know The statin medications lower cholesterol: True To control blood pressure, lower the amount of sodium: True If someone gets chest discomfort during walking: False Transfats are partially hydrogenated vegetable oils: I Don't Know Sleep apnea that is not treated increases the risk: I Don't Know To control cholesterol, one should become a vegetarian: I Don't Know Someone knows if he/she is exercising at the right level: I Don't Know Diabetes cannot be prevented with exercise & health eating: False Stress is a large risk for heart attack: False A diet that can help lower blood pressure is rich in: True Total Score Total Correct Responses: 12 Self-Efficacy 6-Item Scale Initial Assessment: We would like to know how confident you are in doing certain activities. Please select your confidence level for: Fatigue Select Number: 8 Physical Discomfort or Pain Select Number: 8 Emotional Distress Select Number: 5 Other Symptoms or Health Problems Select Number: 8 Different Tasks and Activities Select Number: 8 Medication Select Number: 8 Total Score:: 7 Nutrition Survey Nutrition Survey Instructions Scoring Instructions Nutrition Survey Initial: Have you lost >10 lbs over the past 2 months without trying?: No Are you following a special diet at home for diabetes, low fat, or low salt?: No Are you interested in meeting with a dietitian for help understanding your diet?: No Do you eat less than 3 meals a day?: No Do you eat fatty meats (evans, sausage, ribs, etc), fried foods, desserts, large amounts of salad dressings, margarine, butter, or cheese most days?: Yes Do you have food allergies? [Enter types in comment field]: No Do you eat in restaurants more than 3 times a week?: No Do you season food with salt, seasoning salt, or garlic salt?: Yes Do you used canned, boxed, frozen meals, or soups, seasoning packets?: Yes Total Score:: 3 Exercise - 30-day Assessment Physician Prescribed Exercise Modalities: Treadmill, Leonardo Stanley AD-7, SciFit Stepper, [email or web address] Pro-II Ergometer and SciFit Lateral Manager [employer] Exercise - 60-day Assessment Physician Prescribed Exercise Modalities: Treadmill, Schwinn Airdyne AD-7, SciFit Stepper, SciFit Pro-II Ergometer and SciFit Lateral Bier Exercise - 90-day Assessment Physician Prescribed Exercise Modalities: Treadmill, Schwinn Airdyne AD-7, SciFit Stepper, SciFit Pro-II Ergometer and SciFit Lateral Bier Exercise - Final/Discharge Physician Prescribed Exercise Modalities: Treadmill, Schwinn Airdyne AD-7, SciFit Stepper, SciFit Pro-II Ergometer and SciFit Lateral Manager [employer] Frequency: 3x/week for 12 weeks [36 sessions] Intensity: 60-80% of age predicted maximum heart rate reserve Current METSs:: 3 Target Heart Rate:: 85-107 Nutrition - 30-Day Assessment Weight Mgt (Other Care) Height: 5 ft 2 in Weight:: 162 lb BMI: 29.6 Nutrition - 60-Day Assessment Weight Mgt (Other Care) Height: 5 ft 2 in Weight:: 162 lb BMI: 29.6 Core - 30-Day Assessment Tobacco Use Years Smokin Core - Final Assessment Hypertension Resting Blood Pressure:: 151/80 [place] [employer] Hypertension Guidelines Core - 60-Day Assessment Hypertension Resting Blood Pressure:: 151/80 [place] [employer] Hypertension Guidelines Psychosocial - 30-Day Assess Target Goals Target Goals Referral to Behavioral Health PS - Interventions: Yes: Attend Stress Management Classes Psychosocial - 60-Day Assess Target Goals Target Goals Referral to Behavioral Health PS - Interventions: Yes: Attend Stress Management Classes Psychosocial - 90-Day Assess Target Goals Target Goals Referral to Behavioral Health PS - Interventions: Yes: Attend Stress Management Classes Psychosocial - Final Assessmen Target Goals Target Goals Referral to Behavioral Health PS - Interventions: Yes: Attend Stress Management Classes Nutrition - 90-Day Assessment Weight Mgt (Other Care) Height: 5 ft 2 in Weight:: 162 lb BMI: 29.6 Nutrition - Final Assessment Program Goals Patient has diagnosis of Hyperlipidemia (ICD E78)?: Yes Weight Mgt (Other Care) Height: 5 ft 2 in Weight:: 162 lb BMI: 29.6
[2024-08-23 10:14] VITALS: BP 151/80
[2024-08-23 10:16] VITALS: BP 151/80
[2024-08-23 10:25] VITALS: BP 151/80; PULSE 82; BMI 29.6
[2024-08-23 10:56] VITALS: BMI 29.6
== END | disposition home or self-care (01) ==
LOC: CR 09:50
PROVIDERS: PCP Internal Medicine; Referring Provider Internal Medicine Cardiovascular Disease; Visit Provider Internal Medicine Cardiovascular Disease
DX: Z95.2 Presence of prosthetic heart valve (principal)

== ENCOUNTER 2024-09-19 10:36 | Outpatient (RCR) | payer MEDICARE, SELFPAY ==
[2024-08-23 10:56] VITALS: BMI 29.6
[2024-09-12 11:48] LABS: International Normalized Ratio 1.7; Prothrombin Time (Protime)PT. 19.7 SECONDS (11.7-14.9)
[2024-09-19 11:57] LABS: Prothrombin Time (Protime)PT. 22.5 SECONDS (11.7-14.9)
== END 2024-09-19 18:00 | disposition home or self-care (01) ==
LOC: LAB 10:36
PROVIDERS: PCP Internal Medicine; Referring Provider Nurse Practitioner Family; Visit Provider Nurse Practitioner Family
DX: Z79.01 Long term (current) use of anticoagulants (principal); I48.0 Paroxysmal atrial fibrillation
CPT/HCPCS: 36415; 85610

== ENCOUNTER 2024-09-19 11:15 | Outpatient (RCR) | payer MEDICARE, SELFPAY ==
[2024-08-23 10:56] VITALS: BMI 29.6
== END 2024-09-22 23:59 ==
LOC: CR 11:15
PROVIDERS: PCP Internal Medicine; Referring Provider Internal Medicine Cardiovascular Disease; Visit Provider Internal Medicine Cardiovascular Disease
DX: I48.0 Paroxysmal atrial fibrillation (principal); I97.89 Other postprocedural complications and disorders of the circulatory system, not elsewhere classified; I44.2 Atrioventricular block, complete; Z95.0 Presence of cardiac pacemaker; Z95.2 Presence of prosthetic heart valve
CPT/HCPCS: 93798

== ENCOUNTER 2024-10-17 10:23 | Outpatient (RCR) | payer MEDICARE, SELFPAY ==
[2024-08-23 10:56] VITALS: BMI 29.6
[2024-09-23 09:14] VITALS: BMI 29.6
[2024-10-03 12:48] LABS: International Normalized Ratio 2.2; Prothrombin Time (Protime)PT. 23.9 SECONDS (11.7-14.9)
[2024-10-17 10:56] LABS: International Normalized Ratio 1.8; Prothrombin Time (Protime)PT. 21.1 SECONDS (11.7-14.9)
== END 2024-10-22 18:00 | disposition home or self-care (01) ==
LOC: LAB 10:23
PROVIDERS: PCP Internal Medicine; Referring Provider Nurse Practitioner Family; Visit Provider Nurse Practitioner Family
DX: Z79.01 Long term (current) use of anticoagulants (principal)

== ENCOUNTER 2024-10-17 11:15 | Outpatient (RCR) | payer MEDICARE, SELFPAY ==
[2024-08-23 10:56] VITALS: BMI 29.6
--- NOTE | 2024-09-23 08:54 | CR.ITP_ITS ---
Exercise - Initial Assessment Visit Session #:: 6 Physician Prescribed Exercise Modalities: Treadmill, SciFit Stepper and SciFit Pro-II Ergometer Nutrition - Initial Assessment Weight Mgt (Other Care) Height: 5 ft 2 in Weight:: 162 lb BMI: 29.6 Core - Initial Assessment Tobacco Use Years Smokin Psychosocial - Initial Assess Target Goals Target Goals Referral to Behavioral Health PS - Interventions: Yes: Attend Stress Management Classes Patient Health Questionnaire PHQ-9 Screening 30-Day Re-eval Assessment: 1. Little interest or pleasure in doing things: Several days 2. Feeling down, depressed, or hopeless: Not at all 3. Trouble falling or staying asleep, or sleeping too much: Several days 4. Feeling tired or having little energy: Nearly every day 5. Poor appetite or overeating: Not at all 6. Feeling bad about yourself -- or that you are a failure or have let yourself or your family down: More than half the days 7. Trouble concentrating on things, such as reading the newspaper or watching television: Not at all 8. Moving or speaking so slowly that other people could have noticed. Or the opposite - being so fidgety or restless that you have been moving around a lot more than usual: Not at all 9. Thoughts that you would be better off , or of hurting yourself in some way: Not at all How difficult have these problems made it for you to do your work, take care of things at home, or get along with other people?: Very difficult Total Score: 7 Self-Efficacy 6-Item Scale 30-Day Re-eval Assessment: We would like to know how confident you are in doing certain activities. Please select your confidence level for: Fatigue Select Number: 8 Physical Discomfort or Pain Select Number: 8 Emotional Distress Select Number: 5 Other Symptoms or Health Problems Select Number: 8 Different Tasks and Activities Select Number: 8 Medication Select Number: 8 Total Score:: 7 Nutrition Survey Nutrition Survey Instructions Scoring Instructions Exercise - 30-day Assessment Visit Date of Eval: 09/23/24 Session #:: 6 Physician Prescribed Exercise Modalities: Treadmill, SciFit Stepper and SciFit Pro-II Ergometer Frequency: 3x/week for 12 weeks [36 sessions] Intensity: 60-80% of age predicted maximum heart rate reserve Duration: 30 - 45 minutes Current METSs:: 3 Target Heart Rate:: 85-107 Current RPE:: 12-15 Maximum Excercise HR:: 99 Resting Blood Pressure: 130/60 Maximum Exercise Blood Pressure: 160/72 EKG Type: NSR with rare PAC Outcomes & Goals Goals:: Verbalizes understanding of THR, RPE & goal METS by session 6, Documents in home exercise log/reports 30 min aerobic 5 day/wk by DC, Demonstrates accurate pulse taking by DC and Other additional outcome/goals: see below Intervention & Plan Exercise Program Goals: Instruct on personal THR & RPE, Instruct on MET level & personal MET goal, Show patient to take own pulse /validate performance until accurate, Instruct on home exercise and Other additional plan/int 30-day Reassessments 30 day Reassessments:: Progressing Reassessment Notes & Comments:: RPE explained to pt. Pt is demonstrates understanding Physical Activity Home Exercise Physical Activity - Home Exercise: Safe Exercise, Warm-up, Self-monitoring, Cool-Down, Home Exercise > 30 min Daily and Sitting Time <3 hours/daily Outcomes & Goals Outcomes/Goals: Demonstrates correct Warm-up/exercise Cool-Down (S3) if = 2.5 METs, Verbalizes symptoms of exercise intolerance by Session 3 (S3), Demonstrate safe equipment use (S3) & follows exercise prescrition (6) and Other: See below Intervention & Plan Plan/Intervention: Instruct warm-up & cool-down if exercising at > 2 METs, Instruct on symptoms of exercise intolerance & actions to take, Instruct & monitor on saf, Assess intial functional capacity & safety risk and Other See below 30-day Reassessments 30 day Reassessments:: Progressing Reassessment Notes & Comments:: warm up explained and demonstrated to the pt. Pt is able to return demonstration. Exercise - 60-day Assessment Physician Prescribed Exercise Modalities: Treadmill, SciFit Stepper and SciFit Pro-II Ergometer Exercise - 90-day Assessment Physician Prescribed Exercise Modalities: Treadmill, SciFit Stepper and SciFit Pro-II Ergometer Exercise - Final/Discharge Physician Prescribed Exercise Modalities: Treadmill, SciFit Stepper and SciFit Pro-II Ergometer Nutrition - 30-Day Assessment Program Goals Nutrition Program Goals Patient has diagnosis of Hyperlipidemia (ICD E78)?: Yes Visit Date of Eval: 09/23/24 Session #:: 6 Cholesterol/Lipids (Other Core Measures) Determine presence & major risk factors that modify LDL goal: Cigarette smoking, Hypertension or hypertensive medication, Low HDL cholesterol <40 mg/dL*, Family history of premature CHD in Male < 55 years: female <65 yearsFa and Age men > 45 years; women >/= 55 years Outcomes/Goals: Pt IDs own risk factors & lifestyle modifications by Session 10, Verbalizes symptoms of angina & response by session 3., Pt independently manages and Other Additional Outcomes/Goals: Intervention/Plan: Advocate for lipid panel cholesterol medication if applicable, Instruct on personal lipid levels & lipid goals/NCEP guidelines, Instruct on cholesterol and Other additional plan/int 30-day Reassessments:: Progressing Reassessment Notes & Comments:: Risk factors explained to pt. Pt is able to demonstrate understanding. Diabetes (Other Core Measures) Diabetes Type: Not Applicable Weight Mgt (Other Care) Height: 5 ft 2 in Weight:: 162 lb BMI: 29.6 Diagnosis Overweight/Obesity BMI> 30% ICD-10 E66: No Diagnosis High BMI/Morbid Obesity BMI> 35% ICD-10 Z68: No Outcomes/Goals: Pt sets, maintains & shows weight loss goal & trend during rehab and Other additional outcomes/goals Intervention/Plan: Instruct on ideal BMI & set weight loss goal w/patient, Assist pt to ID & incorporate diet changes for weight loss by S9, Refer to Structured Weight Loss program as appropriate, Encourage goal of using 250- 300dcal per session for weight loss and Other additional plan/interventions 30 day Reassessments:: Progressing Reassessment Notes & Comments:: Pt is to attend nutrition class this coming thursday Healthy Eating Habits Will attend diet classes:: Yes Outcomes/Goals:: Consume diet rich in vegs,fruits,whole grain/high fiber,f karli,lean meat, Limit sat/trans fats,cholesterol & added salts & sugars and Other additional outcome/goals: Intervention/Plan:: Assess current eating habits and Other Additional plan/interventions 30-day Reassessments:: Progressing Reassessment Notes & Comments:: Pt is to attend nutrition class this coming thursday. Pt is also encouraged to keep a food log. Education Gave educational materials for:: Signs & symptoms of hypoglycemia, Signs & symptoms of hyperglycemia, Relate diabetes to coronary artery disease and Healthy eating Nutrition - 60-Day Assessment Weight Mgt (Other Care) Height: 5 ft 2 in Weight:: 162 lb BMI: 29.6 Core - 30-Day Assessment Visit Date of Eval: 09/23/24 Session #:: 6 Medication Compliance Preventative Medication(s):: Statin/lipid, Beta scott, Eliquis and ARB (Angiotensi Rcap) H/O mental health issues: depression, anxiety, or addiction?: No Doesn?t believe in the benefits of treatment?: No Believes medications are unnecessary or harmful?: No Has a concern about medication side effects?: No Expresses concern over the cost of medications?: No Outcomes/Goals: Verbalizes medications,desired effect & common side effects @ DC, Pt self-reports following medication regimen, Keeps card in wallet w/medications listed by DC and Other additional outcome/goals: Interventions/plans: Instruct on medication effects & side effects, Review medication list w/patient every two weeks, Instruct importance of taking meds as ordered & assist problem solving and Other additional 30-day Reassessments:: Progressing Reassessment Notes & Comments:: Pt is encouraged to take meds as prescribed. Benefits of meds explained Tobacco Use Tobacco Use: Cigarettes How many cigarettes do you smoke per day?: 10 Years Smokin Outcomes/Goals: Smoking cessation achieved or maintained by discharge, Identify aids/strategies for achieving smoking cessation by session 6 and Other additional outcome/goals Interventions/plan: Instruct on effects of smoking & provide smoking cessation resource, Assist pt to set quit date & provide encouragement, Assist pt to develop strategies to achieve/maintain quit date, Assist pt w/nicotine replacement & medication for cessation success and Other additional plan/interventions 30-day Reassessments:: Progressing Reassessment Notes & Comments:: pt encouraged to attend 1 on 1 smoking cessation. Pt will attend smoking cessation class. Hypertension Hypertension Diagnosis:: Hypertension ICD-10 I10 Resting Blood Pressure:: 130/60 [place] [employer] Hypertension Guidelines Peak Exercise Blood Pressure:: 160/72 Outcomes/Goals: Able to verbalize/achieve optimal blood pressure <130/80, Incorporates diet changes & exercise for blood pressure control by DC and Other additional outcomes/goals Interventions/plan: Instruct on optimal blood pressure, hypertension & medicati ons, Instruct on effects of sodium, alcohol, stress, exercise &hypertension and Other additional plan/interventions 30 day Reassessments:: Progressing Reassessment Notes & Comments:: Low sodium diet is encouraged. Pt understands benefits Tobacco Cessation Referral Smoking Cessation Referral:: No Individual Education/Counseling:: No Education Schedule Given:: Yes Psychosocial - 30-Day Assess VIsit Date of Eval: 09/23/24 Session #:: 6 History of previous Mental disease:: No Target Goals Target Goals Psychosocial Test Tool Used:: Ferrans Power QOL Cardiac and PHQ-9 Questionnaire phq-9 Severity Referral to Behavioral Health PS - Interventions: Yes: Attend Stress Management Classes Outcomes/Goals: See list Psychosocial Outcomes/Goals:: ID's personal stressors & 2 strategies to manage stress by discharge and Other Additional outcome/goals: Intervention/Plan: See List Interventions/Plan:: Assess stressors,coping strategies & signs of derpression on admission, Instruct/assist pt to develop coping & personal stress Mgt strategies, Refer to Behavioral Health if appropriate, Refer to Physician if appropriate, Instruct patient to recognize signs & symptoms of depression, Instruct patient to recog and Other additional plan/intervention 30-day Reassessments: 30 day Reassessments:: Met Reassessment Notes & Comments:: pt denies any psychosocial issues at this time. Psychosocial - 60-Day Assess Target Goals Target Goals Referral to Behavioral Health PS - Interventions: Yes: Attend Stress Management Classes Outcomes/Goals: See list Psychosocial Outcomes/Goals:: ID's personal stressors & 2 strategies to manage stress by discharge and Other Additional outcome/goals: Psychosocial - 90-Day Assess Target Goals Target Goals Referral to Behavioral Health PS - Interventions: Yes: Attend Stress Management Classes Psychosocial - Final Assessmen Target Goals Target Goals Referral to Behavioral Health PS - Interventions: Yes: Attend Stress Management Classes Nutrition - 90-Day Assessment Weight Mgt (Other Care) Height: 5 ft 2 in Weight:: 162 lb BMI: 29.6 Nutrition - Final Assessment Weight Mgt (Other Care) Height: 5 ft 2 in Weight:: 162 lb BMI: 29.6
[2024-09-23 09:02] VITALS: BP 130/60
[2024-09-23 09:14] VITALS: BP 130/60; BMI 29.6
--- NOTE | 2024-10-19 11:10 | CR.ITP_ITS ---
Exercise - Initial Assessment Physician Prescribed Exercise Modalities: Treadmill, SciFit Stepper and SciFit Pro-II Ergometer Nutrition - Initial Assessment Weight Mgt (Other Care) Height: 5 ft 2 in Weight:: 162 lb BMI: 29.6 Core - Initial Assessment Hypertension Resting Blood Pressure:: 128/80 [place] [employer] Hypertension Guidelines Psychosocial - Initial Assess Target Goals Target Goals Referral to Behavioral Health PS - Interventions: Yes: Attend Stress Management Classes Patient Health Questionnaire PHQ-9 Screening 60-Day Re-eval Assessment: 1. Little interest or pleasure in doing things: Several days 2. Feeling down, depressed, or hopeless: Not at all 3. Trouble falling or staying asleep, or sleeping too much: Several days 4. Feeling tired or having little energy: Nearly every day 5. Poor appetite or overeating: Not at all 6. Feeling bad about yourself -- or that you are a failure or have let yourself or your family down: More than half the days 7. Trouble concentrating on things, such as reading the newspaper or watching television: Not at all 8. Moving or speaking so slowly that other people could have noticed. Or the opposite - being so fidgety or restless that you have been moving around a lot more than usual: Not at all 9. Thoughts that you would be better off , or of hurting yourself in some way: Not at all How difficult have these problems made it for you to do your work, take care of things at home, or get along with other people?: Very difficult Total Score: 7 Self-Efficacy 6-Item Scale 60-Day Re-eval Assessment: We would like to know how confident you are in doing certain activities. Please select your confidence level for: Fatigue Select Number: 8 Physical Discomfort or Pain Select Number: 8 Emotional Distress Select Number: 5 Other Symptoms or Health Problems Select Number: 8 Different Tasks and Activities Select Number: 8 Medication Select Number: 8 Total Score:: 7 Nutrition Survey Nutrition Survey Instructions Scoring Instructions Exercise - 30-day Assessment Physician Prescribed Exercise Modalities: Treadmill, SciFit Stepper and SciFit Pro-II Ergometer Exercise - 60-day Assessment Visit Date of Eval: 10/19/24 Session #:: 14 Physician Prescribed Exercise Modalities: Treadmill, SciFit Stepper and SciFit Pro-II Ergometer Frequency: 3x/week for 12 weeks [36 sessions] Intensity: 60-80% of age predicted maximum heart rate reserve Duration: 30 - 45 minutes Current METSs:: 4.4 Target Heart Rate:: 85-107 Current RPE:: 12-13 Maximum Excercise HR:: 97 Resting Blood Pressure: 160/70 Maximum Exercise Blood Pressure: 160/74 EKG Type: NSR/paced with rare pac Outcomes & Goals Goals:: Verbalizes understanding of THR, RPE & goal METS by session 6, Documents in home exercise log/reports 30 min aerobic 5 day/wk by DC, Demonstrates accurate pulse taking by DC and Other additional outcome/goals: see below Intervention & Plan Exercise Program Goals: Instruct on personal THR & RPE, Instruct on MET level & personal MET goal, Show patient to take own pulse /validate performance until accurate, Instruct on home exercise and Other additional plan/int 30-day Reassessments 30 day Reassessments:: Progressing Reassessment Notes & Comments:: THR explained. Pt demonstrates understanding Physical Activity Home Exercise Physical Activity - Home Exercise: Safe Exercise, Warm-up, Self-monitoring, Cool-Down, Home Exercise > 30 min Daily and Sitting Time <3 hours/daily Outcomes & Goals Outcomes/Goals: Demonstrates correct Warm-up/exercise Cool-Down (S3) if = 2.5 METs, Verbalizes symptoms of exercise intolerance by Session 3 (S3), Demonstrate safe equipment use (S3) & follows exercise prescrition (6) and Other: See below Intervention & Plan Plan/Intervention: Instruct warm-up & cool-down if exercising at > 2 METs, Instruct on symptoms of exercise intolerance & actions to take, Instruct & monitor on saf, Assess intial functional capacity & safety risk and Other See below 30-day Reassessments 30 day Reassessments:: Progressing Reassessment Notes & Comments:: cool down explained. Pt is able to return demonstration. Exercise - 90-day Assessment Physician Prescribed Exercise Modalities: Treadmill, SciFit Stepper and SciFit Pro-II Ergometer Exercise - Final/Discharge Physician Prescribed Exercise Modalities: Treadmill, SciFit Stepper and SciFit Pro-II Ergometer Nutrition - 30-Day Assessment Weight Mgt (Other Care) Height: 5 ft 2 in Weight:: 162 lb BMI: 29.6 Nutrition - 60-Day Assessment Program Goals Nutrition Program Goals Patient has diagnosis of Hyperlipidemia (ICD E78)?: Yes Visit Date of Eval: 10/19/24 Session #:: 14 Cholesterol/Lipids (Other Core Measures) Determine presence & major risk factors that modify LDL goal: Cigarette smoking, Hypertension or hypertensive medication, Low HDL cholesterol <40 mg/dL*, Family history of premature CHD in Male < 55 years: female <65 yearsFa and Age men > 45 years; women >/= 55 years Outcomes/Goals: Pt IDs own risk factors & lifestyle modifications by Session 10, Verbalizes symptoms of angina & response by session 3., Pt independently manages and Other Additional Outcomes/Goals: Intervention/Plan: Advocate for lipid panel cholesterol medication if applicable, Instruct on personal lipid levels & lipid goals/NCEP guidelines, Instruct on cholesterol and Other additional plan/int 30-day Reassessments:: Progressing Reassessment Notes & Comments:: The importance of routine blood draws explained to pt. Pt demonstrates understanding. Diabetes (Other Core Measures) Diabetes Type: Not Applicable Weight Mgt (Other Care) Height: 5 ft 2 in Weight:: 162 lb BMI: 29.6 Diagnosis Overweight/Obesity BMI> 30% ICD-10 E66: No Diagnosis High BMI/Morbid Obesity BMI> 35% ICD-10 Z68: No Outcomes/Goals: Pt sets, maintains & shows weight loss goal & trend during rehab and Other additional outcomes/goals Intervention/Plan: Instruct on ideal BMI & set weight loss goal w/patient, Assist pt to ID & incorporate diet changes for weight loss by S9, Refer to Structured Weight Loss program as appropriate, Encourage goal of using 250- 300dcal per session for weight loss and Other additional plan/interventions 30 day Reassessments:: Progressing Reassessment Notes & Comments:: Pt has attended nutrition classes and is implementing new knowledge into her daily eating habits. Healthy Eating Habits Will attend diet classes:: Yes Outcomes/Goals:: Consume diet rich in vegs,fruits,whole grain/high fiber,fish,lean meat, Limit sat/trans fats,cholesterol & added salts & sugars and Other additional outcome/goals: Intervention/Plan:: Assess current eating habits and Other Additional plan/interventions 30-day Reassessments:: Met Reassessment Notes & Comments:: Pt has attended nutrition classes and is implementing new knowledge into her daily eating habits. Education Gave educational materials for:: Signs & symptoms of hypoglycemia, Signs & symptoms of hyperglycemia, Relate diabetes to coronary artery disease and Healthy eating Core - Final Assessment Tobacco Use How many cigarettes do you smoke per day?: 10 Years Smokin Hypertension Resting Blood Pressure:: 128/80 [place] [employer] Hypertension Guidelines Core - 60-Day Assessment Visit Date of Eval: 10/19/24 Session #:: 14 Medication Compliance Preventative Medication(s):: Statin/lipid, Beta scott, Eliquis and ARB (Angiotensi Rcap) H/O mental health issues: depression, anxiety, or addiction?: No Doesn?t believe in the benefits of treatment?: No Believes medications are unnecessary or harmful?: No Has a concern about medication side effects?: No Expresses concern over the cost of medications?: No Outcomes/Goals: Verbalizes medications,desired effect & common side effects @ DC, Pt self-reports following medication regimen, Keeps card in wallet w/medica tions listed by DC and Other additional outcome/goals: Interventions/plans: Instruct on medication effects & side effects, Review medication list w/patient every two weeks, Instruct importance of taking meds as ordered & assist problem solving and Other additional 30-day Reassessments:: Progressing Reassessment Notes & Comments:: Pt is currently taking meds as prescribed Tobacco Use Tobacco Use: Cigarettes How many cigarettes do you smoke per day?: 10 Years Smokin Outcomes/Goals: Smoking cessation achieved or maintained by discharge, Identify aids/strategies for achieving smoking cessation by session 6 and Other additional outcome/goals Interventions/plan: Instruct on effects of smoking & provide smoking cessation resource, Assist pt to set quit date & provide encouragement, Assist pt to develop strategies to achieve/maintain quit date, Assist pt w/nicotine replacement & medication for cessation success and Other additional plan/interventions 30-day Reassessments:: Progressing Reassessment Notes & Comments:: Continue to encouraged pt to stop smoking and attend smoking cessation class Hypertension Hypertension Diagnosis:: Hypertension ICD-10 I10 Resting Blood Pressure:: 160/70 Resting Blood Pressure:: 128/80 [place] [employer] Hypertension Guidelines Peak Exercise Blood Pressure:: 160/74 Outcomes/Goals: Able to verbalize/achieve optimal blood pressure <130/80, Incorporates diet changes & exercise for blood pressure control by DC and Other additional outcomes/goals Interventions/plan: Instruct on optimal blood pressure, hypertension & medications, Instruct on effects of sodium, alcohol, stress, exercise &hypertension and Other additional plan/interventions 30 day Reassessments:: Progressing Reassessment Notes & Comments:: Pt encouraged to eat a low sodium diet to help lower BP Psychosocial - 30-Day Assess Target Goals Target Goals Referral to Behavioral Health PS - Interventions: Yes: Attend Stress Management Classes Outcomes/Goals: See list Psychosocial Outcomes/Goals:: ID's personal stressors & 2 strategies to manage stress by discharge and Other Additional outcome/goals: Psychosocial - 60-Day Assess VIsit History of previous Mental disease:: No Target Goals Target Goals Psychosocial Test Tool Used:: [employer] Power QOL Cardiac and PHQ-9 Questionnaire phq-9 Severity Referral to Behavioral Health PS - Interventions: Yes: Attend Stress Management Classes Outcomes/Goals: See list Psychosocial Outcomes/Goals:: ID's personal stressors & 2 strategies to manage stress by discharge and Other Additional outcome/goals: Intervention/Plan: See List Interventions/Plan:: Assess stressors,coping strategies & signs of derpression on admission, Instruct/assist pt to develop coping & personal stress Mgt strategies, Refer to Behavioral Health if appropriate, Refer to Physician if appropriate, Instruct patient to recognize signs & symptoms of depression, Instruct patient to recog and Other additional plan/intervention 30-day Reassessments: 30 day Reassessments:: Met Reassessment Notes & Comments:: pt denies psychosocial issues at this time Psychosocial - 90-Day Assess Target Goals Target Goals Referral to Behavioral Health PS - Interventions: Yes: Attend Stress Management Classes Psychosocial - Final Assessmen Target Goals Target Goals Referral to Behavioral Health PS - Interventions: Yes: Attend Stress Management Classes Nutrition - 90-Day Assessment Weight Mgt (Other Care) Height: 5 ft 2 in Weight:: 162 lb BMI: 29.6 Nutrition - Final Assessment Weight Mgt (Other Care) Height: 5 ft 2 in Weight:: 162 lb BMI: 29.6
[2024-10-19 11:27] VITALS: BP 128/80; BP 160/70; BMI 29.6
== END 2024-10-22 23:59 ==
LOC: CR 11:15
PROVIDERS: PCP Internal Medicine; Referring Provider Internal Medicine Cardiovascular Disease; Visit Provider Internal Medicine Cardiovascular Disease
DX: I48.0 Paroxysmal atrial fibrillation (principal); Z95.2 Presence of prosthetic heart valve; I97.89 Other postprocedural complications and disorders of the circulatory system, not elsewhere classified; I44.2 Atrioventricular block, complete; Z95.0 Presence of cardiac pacemaker
CPT/HCPCS: 93798

== ENCOUNTER 2024-11-21 10:31 | Outpatient (RCR) | payer MEDICARE, SELFPAY ==
[2024-10-31 11:05] LABS: Prothrombin Time (Protime)PT. 22.8 SECONDS (11.7-14.9)
[2024-11-21 11:53] LABS: International Normalized Ratio 1.8; Prothrombin Time (Protime)PT. 20.5 SECONDS (11.7-14.9)
== END 2024-11-21 18:00 | disposition home or self-care (01) ==
LOC: LAB 10:31
PROVIDERS: Internal Medicine Cardiovascular Disease; PCP Internal Medicine; Referring Provider Nurse Practitioner Family; Visit Provider Nurse Practitioner Family
DX: Z79.01 Long term (current) use of anticoagulants (principal)
CPT/HCPCS: 36415; 85610

== ENCOUNTER 2024-11-21 11:00 | Outpatient (RCR) | payer MEDICARE, SELFPAY ==
[2024-10-23 00:52] VITALS: BP 128/80; BP 130/60; BP 160/70
--- NOTE | 2024-11-17 07:21 | PCM.CR.ITP ---
Exercise - Initial Assessment Physician Prescribed Exercise Modalities: Treadmill, SciFit Stepper and SciFit Pro-II Ergometer Nutrition - Initial Assessment Weight Mgt (Other Care) Height: 5 ft 2 in Weight:: 162 lb BMI: 29.6 Psychosocial - Initial Assess Target Goals Target Goals Referral to Behavioral Health PS - Interventions: Yes: Attend Stress Management Classes Patient Health Questionnaire PHQ-9 Screening 90-Day Re-eval Assessment: 1. Little interest or pleasure in doing things: Several days 2. Feeling down, depressed, or hopeless: Not at all 3. Trouble falling or staying asleep, or sleeping too much: Several days 4. Feeling tired or having little energy: Nearly every day 5. Poor appetite or overeating: Not at all 6. Feeling bad about yourself -- or that you are a failure or have let yourself or your family down: More than half the days 7. Trouble concentrating on things, such as reading the newspaper or watching television: Not at all 8. Moving or speaking so slowly that other people could have noticed. Or the opposite - being so fidgety or restless that you have been moving around a lot more than usual: Not at all 9. Thoughts that you would be better off , or of hurting yourself in some way: Not at all How difficult have these problems made it for you to do your work, take care of things at home, or get along with other people?: Very difficult Total Score: 7 Self-Efficacy 6-Item Scale 90-Day Re-eval Assessment: We would like to know how confident you are in doing certain activities. Please select your confidence level for: Fatigue Select Number: 8 Physical Discomfort or Pain Select Number: 8 Emotional Distress Select Number: 5 Other Symptoms or Health Problems Select Number: 8 Different Tasks and Activities Select Number: 8 Medication Select Number: 8 Total Score:: 7 Nutrition Survey Nutrition Survey Instructions Scoring Instructions Exercise - 30-day Assessment Physician Prescribed Exercise Modalities: Treadmill, SciFit Stepper and SciFit Pro-II Ergometer Exercise - 60-day Assessment Physician Prescribed Exercise Modalities: Treadmill, SciFit Stepper and SciFit Pro-II Ergometer Exercise - 90-day Assessment Visit Date of Eval: 11/17/24 Session #:: 18 Physician Prescribed Exercise Modalities: Treadmill, SciFit Stepper and SciFit Pro-II Ergometer Frequency: 3x/week for 12 weeks [36 sessions] Intensity: 60-80% of age predicted maximum heart rate reserve Duration: 30 - 45 minutes Current METSs:: 4.4 Target Heart Rate:: 85-107 Current RPE:: 12 Maximum Excercise HR:: 100 Resting Blood Pressure: 128/70 Maximum Exercise Blood Pressure: 140/64 EKG Type: NSR to ST/paced rhythm with a rare PAC. Outcomes & Goals Goals:: Verbalizes understanding of THR, RPE & goal METS by session 6, Documents in home exercise log/reports 30 min aerobic 5 day/wk by DC, Demonstrates accurate pulse taking by DC and Other additional outcome/goals: see below Intervention & Plan Exercise Program Goals: Instruct on personal THR & RPE, Instruct on MET level & personal MET goal, Show patient to take own pulse /validate performance until accurate, Instruct on home exercise and Other additional plan/int Physical Activity Home Exercise Physical Activity - Home Exercise: Safe Exercise, Warm-up, Self-monitoring, Cool-Down, Home Exercise > 30 min Daily and Sitting Time <3 hours/daily Outcomes & Goals Outcomes/Goals: Demonstrates correct Warm-up/exercise Cool-Down (S3) if = 2.5 METs, Verbalizes symptoms of exercise intolerance by Session 3 (S3), Demonstrate safe equipment use (S3) & follows exercise prescrition (6) and Other: See below Intervention & Plan Plan/Intervention: Instruct warm-up & cool-down if exercising at > 2 METs, Instruct on symptoms of exercise intolerance & actions to take, Instruct & monitor on saf, Assess intial functional capacity & safety risk and Other See below 30-day Reassessments 30 day Reassessments:: Progressing Reassessment Notes & Comments:: Cool down demonstrated and explained to pt. Pt is able to return demonstration. Exercise - Final/Discharge Physician Prescribed Exercise Modalities: Treadmill, SciFit Stepper and SciFit Pro-II Ergometer Nutrition - 30-Day Assessment Weight Mgt (Other Care) Height: 5 ft 2 in Weight:: 162 lb BMI: 29.6 Nutrition - 60-Day Assessment Weight Mgt (Other Care) Height: 5 ft 2 in Weight:: 162 lb BMI: 29.6 Core - 30-Day Assessment Hypertension [employer] Hypertension Guidelines Reassessment Notes & Comments:: Pt's BP's have improved but are still not within AHA normal limits. Will encourage weight loss and a low sodium diet. Will send report to pt's physician if necessary. Core - Final Assessment Hypertension [employer] Hypertension Guidelines Reassessment Notes & Comments:: Pt's BP's have improved but are still not within AHA normal limits. Will encourage weight loss and a low sodium diet. Will send report to pt's physician if necessary. Core - 90 Day Assessment Visit Date of Eval: 11/17/24 Session #:: 18 Medication Compliance Preventative Medication(s):: Statin/lipid, Beta scott and ARB (Angiotensi Rcap) H/O mental health issues: depression, anxiety, or addiction?: No Doesn?t believe in the benefits of treatment?: No Believes medications are unnecessary or harmful?: No Has a concern about medication side effects?: No Expresses concern over the cost of medications?: No Outcomes/Goals: Verbalizes medications,desired effect & common side effects @ DC, Pt self-reports following medication regimen, Keeps card in wallet w/medications listed by DC and Other additional outcome/goals: Interventions/plans: Instruct on medication effects & side effects, Review medication list w/patient every two weeks, Instruct importance of taking meds as ordered & assist problem solving and Other additional Tobacco Use Tobacco Use: Cigarettes How many cigarettes do you smoke per day?: 10 Years Smokin Outcomes/Goals: Smoking cessation achieved or maintained by discharge, Identify aids/strategies for achieving smoking cessation by session 6 and Other additional outcome/goals Interventions/plan: Instruct on effects of smoking & provide smoking cessation resource, Assist pt to set quit date & provide encouragement, Assist pt to develop strategies to achieve/maintain quit date, Assist pt w/nicotine replacement & medication for cessation success and Other additional plan/interventions 30-day Reassessments:: Progressing Reassessment Notes & Comments:: Continue to encourage pt to stop smoking and attend smoking cessation class. Hypertension Hypertension Diagnosis:: Hypertension ICD-10 I10 Resting Blood Pressure:: 128/70 [employer] Hypertension Guidelines Peak Exercise Blood Pressure:: 140/64 Outcomes/Goals: Able to verbalize/achieve optimal blood pressure <130/80, Incorporates diet changes & exercise for blood pressure control by DC and Other additional outcomes/goals Interventions/plan: Instruct on optimal blood pressure, hypertension & medications, Instruct on effects of sodium, alcohol, stress, exercise &hypertension and Other additional plan/interventions 30 day Reassessments:: Progressing Reassessment Notes & Comments:: Pt's BP's have improved but are still not within AHA normal limits. Will encourage weight loss and a low sodium diet. Will send report to pt's physician if necessary. Tobacco Cessation Referral Education Schedule Given:: Yes Psychosocial - 30-Day Assess Target Goals Target Goals Referral to Behavioral Health PS - Interventions: Yes: Attend Stress Management Classes Psychosocial - 60-Day Assess Target Goals Target Goals Referral to Behavioral Health PS - Interventions: Yes: Attend Stress Management Classes Psychosocial - 90-Day Assess VIsit Date of Eval: 11/17/24 Session #:: 18 History of previous Mental disease:: No Target Goals Target Goals Psychosocial Test Tool Used:: [employer] QOL Cardiac and PHQ-9 Questionnaire phq-9 Severity Referral to Behavioral Health PS - Interventions: Yes: Attend Stress Management Classes Outcomes/Goals: See list Psychosocial Outcomes/Goals:: ID's personal stressors & 2 strategies to manage stress by discharge and Other Additional outcome/goals: Intervention/Plan: See List Interventions/Plan:: Assess stressors,coping strategies & signs of derpression on admission, Instruct/assist pt to develop coping & personal stress Mgt strategies, Refer to Behavioral Health if appropriate, Refer to Physician if appropriate, Instruct patient to recognize signs & symptoms of depression, Instruct patient to recog and Other additional plan/intervention 30-day Reassessments: 30 day Reassessments:: Met Reassessment Notes & Comments:: Pt denies any psychosocial issues at this time. Psychosocial - Final Assessmen Target Goals Target Goals Referral to Behavioral Health PS - Interventions: Yes: Attend Stress Management Classes Nutrition - 90-Day Assessment Program Goals Nutrition Program Goals Patient has diagnosis of Hyperlipidemia (ICD E78)?: Yes Visit Date of Eval: 11/17/24 Session #:: 18 Cholesterol/Lipids (Other Core Measures) Determine presence & major risk factors that modify LDL goal: Cigarette smoking, Hypertension or hypertensive medication, Low HDL cholesterol <40 mg/dL*, Family history of premature CHD in Male < 55 years: female <65 yearsFa and Age men > 45 years; women >/= 55 years Outcomes/Goals: Pt IDs own risk factors & lifestyle modifications by Session 10, Verbalizes symptoms of angina & response by session 3., Pt independently manages and Other Additional Outcomes/Goals: Intervention/Plan: Advocate for lipid panel cholesterol medication if applicable, Instruct on personal lipid levels & lipid goals/NCEP guidelines, Instruct on cholesterol and Other additional plan/int Diabetes (Other Core Measures) Diabetes Type: Not Applicable Weight Mgt (Other Care) Height: 5 ft 2 in Weight:: 162 lb BMI: 29.6 Diagnosis Overweight/Obesity BMI> 30% ICD-10 E66: No Diagnosis High BMI/Morbid Obesity BMI> 35% ICD-10 Z68: No Outcomes/Goals: Pt sets, maintains & shows weight loss goal & trend during rehab and Other additional outcomes/goals Intervention/Plan: Instruct on ideal BMI & set weight loss goal w/patient, Assist pt to ID & incorporate diet changes for weight loss by S9, Refer to Structured Weight Loss program as appropriate, Encourage goal of using 250-300dcal per session for weight loss and Other additional plan/interventions Healthy Eating Habits Will attend diet classes:: Yes Outcomes/Goals:: Consume diet rich in vegs,fruits,whole grain/high fiber,fish,lean meat, Limit sat/trans fats,cholesterol & added salts & sugars and Other additional outcome/goals: Intervention/Plan:: Assess current eating habits and Other Additional plan/interventions 30-day Reassessments:: Met Reassessment Notes & Comments:: Pt has attended nutrition class and is implementing new knowledge into her daily eating habits. Education Gave educational materials for:: Signs & symptoms of hypoglycemia, Signs & symptoms of hyperglycemia, Relate diabetes to coronary artery disease and Healthy eating Nutrition - Final Assessment Weight Mgt (Other Care) Height: 5 ft 2 in Weight:: 162 lb BMI: 29.6
[2024-11-17 07:36] VITALS: BP 128/70; BMI 29.6
== END 2024-11-22 23:59 ==
LOC: CR 11:00
PROVIDERS: PCP Internal Medicine; Referring Provider Internal Medicine Cardiovascular Disease; Visit Provider Internal Medicine Cardiovascular Disease
DX: I48.0 Paroxysmal atrial fibrillation (principal); Z95.2 Presence of prosthetic heart valve; I97.89 Other postprocedural complications and disorders of the circulatory system, not elsewhere classified; I44.2 Atrioventricular block, complete; Z95.0 Presence of cardiac pacemaker
CPT/HCPCS: 93798

== ENCOUNTER 2024-11-25 06:51 | Outpatient (RCR) | payer MEDICARE, SELFPAY ==
[2024-11-17 07:36] VITALS: BMI 29.6
[2024-11-23 00:47] VITALS: BP 128/70; BP 128/80; BP 130/60; BP 160/70
== END 2024-12-23 23:59 ==
LOC: CR 06:51
PROVIDERS: PCP Internal Medicine; Referring Provider Internal Medicine Cardiovascular Disease; Visit Provider Internal Medicine Cardiovascular Disease
DX: I48.0 Paroxysmal atrial fibrillation (principal); Z95.2 Presence of prosthetic heart valve; I97.89 Other postprocedural complications and disorders of the circulatory system, not elsewhere classified; I44.2 Atrioventricular block, complete; Z95.0 Presence of cardiac pacemaker

== ENCOUNTER 2024-12-19 11:11 | Outpatient (RCR) | payer MEDICARE, SELFPAY ==
[2024-11-17 07:36] VITALS: BMI 29.6
[2024-12-05 11:51] LABS: International Normalized Ratio 2.4; Prothrombin Time (Protime)PT. 26.8 SECONDS (11.7-14.9)
[2024-12-19 12:01] LABS: International Normalized Ratio 2.7; Prothrombin Time (Protime)PT. 28.9 SECONDS (11.7-14.9)
== END 2024-12-19 18:00 | disposition home or self-care (01) ==
LOC: LAB 11:11
PROVIDERS: PCP Internal Medicine; Referring Provider Nurse Practitioner Family; Visit Provider Nurse Practitioner Family
DX: Z79.01 Long term (current) use of anticoagulants (principal)
CPT/HCPCS: 36415; 85610

== ENCOUNTER 2025-01-12 09:43 | Outpatient (RCR) | payer MEDICARE, SELFPAY ==
[2024-11-17 07:36] VITALS: BMI 29.6
[2025-01-12 12:23] LABS: International Normalized Ratio 2.8; Prothrombin Time (Protime)PT. 29.7 SECONDS (11.7-14.9)
== END 2025-01-20 18:00 | disposition home or self-care (01) ==
LOC: LAB 09:43
PROVIDERS: PCP Internal Medicine; Referring Provider Nurse Practitioner Family; Visit Provider Nurse Practitioner Family
DX: Z79.01 Long term (current) use of anticoagulants (principal)
CPT/HCPCS: 36415; 85610

== ENCOUNTER → 2025-03-09 | Outpatient (CLI) | payer MEDICARE, SELFPAY ==
[2024-11-17 07:36] VITALS: BMI 29.6
[2025-03-09 11:28] LABS: Albumin, Serum 4.1 g/dL (3.4-4.8); Anion Gap 11 (5-15); BUN 37 mg/dL (4-19); BUN/Creat Ratio 20.8 RATIO (10-20); Calcium,Total 9.4 mg/dL (7.6-11.0); Carbon Dioxide 23.9 mmol/L (21.0-32.0); Chloride 107 mmol/L (98-108); Creatinine, Serum 1.77 mg/dL (0.70-1.20); EST Glomerular Filtration Rate 29 (>60); Glucose 91 mg/dL (70-99); Phosphorus 3.4 mg/dL (2.7-4.5); Sodium Level 142 mmol/L (133-145)
== END | disposition home or self-care (01) ==
LOC: LAB 10:15
PROVIDERS: PCP Internal Medicine; Referring Provider Internal Medicine Nephrology; Visit Provider Internal Medicine Nephrology
DX: N18.32 Chronic kidney disease, stage 3b (principal)
CPT/HCPCS: 36415; 80069

== ENCOUNTER → 2025-04-24 | Outpatient (CLI) | payer MEDICARE, SELFPAY ==
[2024-11-17 07:36] VITALS: BMI 29.6
[2025-04-24 13:25] LABS: Anion Gap 13 (5-15); BUN 37 mg/dL (4-19); BUN/Creat Ratio 18.5 RATIO (10-20); Calcium,Total 9.6 mg/dL (7.6-11.0); Carbon Dioxide 24.4 mmol/L (21.0-32.0); Chloride 106 mmol/L (98-108); Creatinine, Serum 2.02 mg/dL (0.70-1.20); EST Glomerular Filtration Rate 25 (>60); Glucose 83 mg/dL (70-99); Potassium 4.1 mmol/L (3.3-5.1); Pro- Brain NATRIURETIC PEPTIDE 791 pg/mL (<=1800); Sodium Level 143 mmol/L (133-145)
[2025-04-24 13:59] LABS: Absolute Lymphocyte Count 2.55 X10^3/uL (0.83-4.51); Absolute Neutrophil Count 5.6 X10^3/uL (2.0-7.7); Basophil# 0.09 X10^3/uL; Eosinophil# 0.23 X10^3/uL; Eosinophils% 2.4 % (0-5); Hemoglobin 15.1 g/dL (12.0-15.0); Lymphocyte # 2.55 X10^3/ul (0.83-4.51); Lymphocyte % 27.1 % (19-41); Mean Corp Hgb Conc 33.6 g/dL (32-36); Mean Corpuscular Hgb 29.3 pg (27.0-32.0); Mean Corpuscular Volume 87.4 fL (81-99); Mean Platelet Vol. 9.1 fl (6.2-12.0); Monocyte# 0.96 X10^3/uL; Monocyte% 10.2 % (0-10); NRBC Flagged by Analyzer 0 % (0-5); Neutrophil # 5.55 X10^3/uL (2.7-7.7); Neutrophil % 59.1 % (47-70); Platelet Count 303 K/mm3 (150-450); RBC Distribution Width CV 13.2 % (11.6-14.6); RBC Distribution Width SD 42.9 fl (35.1-43.9); Red Blood Count 5.15 M/mm3 (4.2-5.4); White Blood Count 9.4 K/mm3 (4.4-11.0)
== END | disposition home or self-care (01) ==
LOC: LAB 11:28
PROVIDERS: PCP Internal Medicine; Referring Provider Nurse Practitioner Family; Visit Provider Nurse Practitioner Family
DX: I48.0 Paroxysmal atrial fibrillation (principal); R06.09 Other forms of dyspnea; R53.83 Other fatigue; R06.02 Shortness of breath
CPT/HCPCS: 36415; 80048; 83880; 84439; 84443; 85025

== ENCOUNTER 2025-05-19 11:29 | Outpatient (CLI) | payer MEDICARE, SELFPAY ==
[2024-11-17 07:36] VITALS: BMI 29.6
--- NOTE | 2025-05-19 12:30 | BRBX_PTH ---
PATIENT: LEANNA HUBBARD LOC: [facility] U#:[id number] AGE/SX: 79/F ROOM: RE05/19/[address]: Dr. Grey Hernandez MD : [id number] BED: DIS: 05/19/2025 SPEC #: [id number] RECD: 05/19/25 12:52 STATUS: ABI REAlejandra #: [id number] FER: 05/19/25 12:[address]: Grey Hernandez DEPT: SURGICAL PATHOLOGY RECD BY: Martha Florez ENTERED: 05/19/25 12:56 SP TYPE: BREAST BX OTHR DR: Dr. Jc Ahuja MD Tissues: A - Left breast, NOS B - Right breast, NOS Procedures: Surgery Specimen Level IV HEADER OPERATION: A- Left breast stereotactic biopsy, B- Right breast stereotactic biopsy PRE-OP DIAGNOSIS: Left breast upper lateral calcifications, right breast lower medial calcifications TISSUE SUBMITTED: A- Left upper breast, B- Right breast A: Ischemic Time: 22 minute Fixation Time: 54 hours, 38 minutes MICROSCOPIC DIAGNOSIS A. Left breast, upper lateral, calcifications, stereotactic biopsy: * Benign breast tissue with fat necrosis. * Calcifications noted. B. Right breast, lower medial, calcifications, stereotactic biopsy: * Benign breast tissue with focal fibroadenomatoid change. * Calcifications noted. MICROSCOPIC DESCRIPTION Slides are reviewed. GROSS DESCRIPTION Received fresh in 3 containers, labeled with the patient's name and date of . Designated as: A. L breast are 2 chambers containing multiple oropeza-yellow tissue cores ranging 1.8 cm to 3.9 cm in length by 0.7 cm in diameter. Calcifications are noted in chamber #10, per postop imaging. The specimen is entirely submitted in 4 cassettes, to include the tissue from chamber #10 and cassette A1. Cold ischemic time: 22 minutesFormalin fixation time: 54 hours, 38 minutes B. R breast are 3 chambers containing approximately 11 oropeza-yellow tissue cores ranging from 1.8 cm to 3.3 cm in length by 0.7 cm in diameter. Calcifications are noted in chambers #5 and #8, per postop imaging. The specimen is entirely submitted in 5 cassettes, to include chambers #5/#8 in cassette B1. Cold ischemic time: 22 minutes Formalin fixation time: 54 hours, [address] 05/19/2025 CPT: 13200y5
--- NOTE | 2025-05-19 17:30 | PCM.OPRPT ---
Multi Select Codes Integumentary Integumentary CPT Codes: 44016 Bx breast 1st lesion strtctc and Other Procedure See Report ([id number] bilateral) Operative Report (Standard) Operative Information Date of Procedure: 05/19/25 Pre-Operative Diagnosis: Bilateral breast microcalcifications Post-Operative Diagnosis: Same Surgery/Procedure Performed: Bilateral stereotactic breast biopsy after school program coordinator: No Type of Anesthesia: Local Procedure Start Time: 12:20 Procedure Stop Time: 13:20 Select all DRAINS/GRAFTS/IMPLANTS that apply: Implanted device Implanted device details: Marking clip deployed at each biopsy site Special Medications: None Estimated Blood Loss: Minimal Specimen collected: Yes Description of specimen(s) removed: Left and right breast biopsy specimens with calcifications in each Description of surgery: The patient is a 79-year-old female who recently underwent screening mammograms and was found to have an area of indeterminate microcalcifications in each breast. A bilateral stereotactic breast biopsy was recommended. I saw the patient in the office and agreed with recommendations to perform a stereotactic biopsy bilaterally. We discussed the details of the planned procedure as well as risks benefits and alternatives. She wished to proceed. Patient was brought to the mammography suite today following informed consent. She was placed prone on the mammotome table. The left breast was biopsied first. Oyster Farmer view was obtained until the area of calcifications were identified. At this point 2 stereotactic views were then obtained in order to target upon the lesion. Once this was obtained the skin of the breast was prepped and draped in the usual sterile manner. Local anesthetic was infiltrated and a #11 blade was then used to make a small skin incision. The biopsy probe was then inserted to the desired depth. Prefire images were obtained and showed good positioning. The probe was then fired. Patient tolerated this well. Next multiple suction biopsies were obtained and tissue was retrieved. The tissue retrieved was then radiographed. There was some microcalcifications present but we felt that additional calcifications may still be present. An additional 6 samples were obtained and these were reradiographed as well. There were multiple calcifications present in the sample. These were then sent to pathology for review. A marking clip was then deployed. Post clip placement image showed the clip to be in the desired location. She was then taken out of compression and same procedure was performed on the right breast. Again the right breast was then placed into compression and anesthesiology crna views were obtained until the calcifications were identified. The right side was more faint and fewer number of calcifications. Once this site was clearly identified, 2 stereotactic views were obtained and the lesion was targeted. Again the skin of the breast was prepped and draped in the usual manner. Local anesthetic was injected and #11 blade was used to make a skin incision. The biopsy probe was inserted and fired. The probe was then excellent position. Numerous suction biopsies were obtained with good tissue sampling. These samples again were radiographed. There were just a couple calcifications present so additional biopsies were obtained. These additional biopsies showed many more calcifications. A marking clip was then deployed. A post clip placement image showed the clip in the desired location. She was then taken out of compression. Manual pressure was held on both sites. Once hemostasis was achieved, Steri-Strips and a dressing were applied. She tolerated procedure well. I will contact her with pathology results become available Surgical Findings: See procedure note Complications Complications: No Admit VTE Documentation VTE Present on Admission: No VTE Mechan Device Prophylaxis: None VTE Pharm Prophylaxis ordered?: No Reason prophylaxis not ordered: Treatment Not Indicated
== END 2025-05-19 23:59 | disposition home or self-care (01) ==
PROVIDERS: PCP Internal Medicine; Referring Provider Surgery; Visit Provider Surgery
DX: N64.1 Fat necrosis of breast (principal); N60.21 Fibroadenosis of right breast; R92.1 Mammographic calcification found on diagnostic imaging of breast
CPT/HCPCS: 19081; 88305; A4648

== ENCOUNTER → 2025-05-30 | Outpatient (CLI) | payer MEDICARE, SELFPAY ==
[2024-11-17 07:36] VITALS: BMI 29.6
--- NOTE | 2025-05-30 13:27 | ECHOCS_ITS ---
Reason For Study Reason For Study: TAVR Procedure This was a 2D Doppler, Color Flow transthoracic echocardiogram. The study was technically difficult. Contrast injection was performed. Exam performed in department. Left Ventricle Normal LV size. The left ventricular ejection fraction is 65 %. Stage 1 diastolic dysfunction. No regional wall motion abnormalities noted. Right Ventricle Normal RV size. ICD or pacer leads identified within the right ventricle. Normal systolic function. Atria Normal left atrium. Normal right atrium. Mitral Valve Normal mitral valve. Tricuspid Valve Normal tricuspid valve. Aortic Valve Peak aortic valve gradient 9 mmHg. Mean aortic valve gradient 5 mmHg. Mild (1+) aortic valve insufficiency. Bioprosthetic aortic valve. Pulmonic Valve Normal pulmonic valve. Great Vessels Normal aortic root. The pulmonary artery is normal size. Inferior vena cava collapse with respiration. Pericardium/Pleural No pericardial effusion. Medication 22 gauge I.V. with prn adaptor inserted into right arm. Diluted definity 1ml given slow IV push to enhance endocardial definition. MMode/2D Measurements & Calculations LVIDd: 3.9 cm IVSd: 1.0 cm LVOT diam: 1.7 cm LVIDs: 2.7 cm LVPWd: 1.0 cm RVDd: 3.5 cm FS: 31.5 % LVOT area: 2.2 cm2 Ao root diam: 2.5 cm LAV(MOD-bp): 42.9 ml LVAd ap4: 29.7 cm2 LAV(MOD-bp) Indexed: 24.5 ml/m2 LVLd ap4: 7.7 cm LAV(MOD-sp2): 43.2 ml EDV(MOD-sp4): 92.9 ml LAV(MOD-sp4): 39.1 ml EDV(sp4-el): 97.3 ml LVAs ap4: 15.7 cm2 LVLs ap4: 6.2 cm ESV(MOD-sp4): 32.8 ml ESV(sp4-el): 33.8 ml EF(MOD-sp4): 64.7 % EF(sp4-el): 65.3 % SV(MOD-sp4): 60.1 ml SV(sp4-el): 63.5 ml LA A4 area: 16.5 cm2 SI(MOD-sp4): 34.3 ml/m2 LA dimension(2D): 3.6 cm RA A4 area: 11.2 cm2 TAPSE: 1.9 cm Time Measurements MV dec time: 0.30 sec Doppler Measurements & Calculations MV E max karsten: 112.2 cm/sec Lat Peak E' Karsten: 7.3 cm/sec Med Peak E' Karsten: 6.9 cm/sec MV A max karsten: 143.0 cm/sec E/E' lat: 15.3 E/E' med: 16.3 MV E/A: 0.78 MV V2 max: 170.0 cm/sec MV P1/2t max karsten: 140.0 cm/sec Ao V2 max: 155.1 cm/sec MV max P.6 mmHg MV P1/2t: 78.8 msec Ao max P.7 mmHg MV V2 mean: 96.3 cm/sec MV dec slope: 520.2 cm/sec2 Ao V2 mean: 109.9 cm/sec MV mean P.5 mmHg MVA(P1/2t): 2.8 cm2 Ao mean P.5 mmHg MV V2 VTI: 41.5 cm Ao V2 VTI: 37.8 cm MVA(VTI): 1.9 cm2 AV (velocity ratio): 0.92 KARL(I,D): 2.1 cm2 KARL(V,D): 2.1 cm2 AI max karsten: 434.8 cm/sec LV V1 max: 143.9 cm/sec SV(LVOT): 78.1 ml AI max P.6 mmHg LV V1 max P.3 mmHg LV V1 mean P.3 mmHg AI dec slope: 374.5 cm/sec2 LV V1 mean: 110.0 cm/sec AI P1/2t: 340.1 msec LV V1 VTI: 34.8 cm PA V2 max: 83.1 cm/sec TR max karsten: 265.7 cm/sec TR max P.2 mmHg ECHO/Echo Complete W/ Contrast Interpretation Summary Normal LV size. The left ventricular ejection fraction is 65 %. Stage 1 diastolic dysfunction. Bioprosthetic aortic valve. Mean aortic valve gradient 5 mmHg. Ordering Physician: Mike Green Referring Physician: Mike Green Performed By: Gavino Davidson RCS
--- NOTE | 2025-05-30 13:27 | CT_ITS ---
PROCEDURE: CTA CHEST W/WO CONTRAST 05/30/2025 REASON FOR EXAM: SOB, SMOKING HISTORY TECHNIQUE: CTA CHEST W/WO CONTRAST Multiplanar Sagittal and Coronal images were obtained. CONTRAST: Isovue-300 VOLUME: 100 mL One or more dose reduction techniques were used (e.g., Automated exposure control, adjustment of the mA and/or kV according to patient size, use of iterative reconstruction technique). RADIATION DOSE SUMMARY: CTDlvol: 4.7 mGy DLP: 230.7 mGycm COMPARISON: None FINDINGS: Thoracic Aorta: Atherosclerotic plaques. No aneurysm or dissection. Heart: Prior aortic valve replacement. Mild degree of coronary artery calcification. Pulmonary Vessels: No evidence of pulmonary embolism. Hardware: Left-sided cardiac pacemaker. Lymph nodes: None Lungs and Airways: 8.9 mm noncalcified nodule in the right lower lobe as seen on axial image 135. Pleura: No pleural effusion. Upper Abdomen: Atrophy of the right kidney. Status post cholecystectomy. Bones: Degenerative changes of the thoracic spine. CT/CTA Chest W/WO Contrast IMPRESSION: No evidence of pulmonary embolism. Coronary artery calcification. 8.9 mm in the right lower lobe as seen on axial image number 135. Repeat exami nation in 6 months. Reading Location: [place] [id number]
[2025-05-30 13:51] LABS: CREATININE FINGERSTICK 1.6 mg/dL (0.55-1.02); EGFR FINGERSTICK 32.0000 mL/min (>60)
== END | disposition home or self-care (01) ==
LOC: CVS 13:25
PROVIDERS: PCP Internal Medicine; Referring Provider Nurse Practitioner Family; Visit Provider Nurse Practitioner Family
DX: I48.0 Paroxysmal atrial fibrillation (principal); Z95.2 Presence of prosthetic heart valve; R06.09 Other forms of dyspnea
CPT/HCPCS: 71275; 93306; Q9957; Q9967; A4216; C8929

== ENCOUNTER → 2025-11-02 | Outpatient (CLI) | payer MEDICARE, SELFPAY ==
[2024-11-17 07:36] VITALS: BMI 29.6
[2025-11-02 11:18] LABS: Creatinine, Urine (random) 110.00 mg/dL (28.00-217.00); Protein, Urine (Random) 15.6 mg/dL (0.0-12.0); Protein:Creat Ratio 142 mg/g CRE (0-200)
[2025-11-02 11:28] LABS: Albumin, Serum 4.1 g/dL (3.4-4.8); Anion Gap 12 (5-15); BUN 34 mg/dL (4-19); BUN/Creat Ratio 19.4 RATIO (10-20); Calcium,Total 9.4 mg/dL (7.6-11.0); Carbon Dioxide 25.4 mmol/L (21.0-32.0); Chloride 106 mmol/L (98-108); Glucose 77 mg/dL (70-99); Potassium 4.7 mmol/L (3.3-5.1)
[2025-11-02 11:30] LABS: PTHIN 36 pg/mL (11-61)
== END | disposition home or self-care (01) ==
LOC: LAB 10:12
PROVIDERS: PCP Internal Medicine; Referring Provider Internal Medicine Nephrology; Visit Provider Internal Medicine Nephrology
DX: I12.9 Hypertensive chronic kidney disease with stage 1 through stage 4 chronic kidney disease, or unspecified chronic kidney disease (principal); N18.32 Chronic kidney disease, stage 3b
CPT/HCPCS: 36415; 80069; 82570; 83970; 84156